=== PATIENT | female | born 1960 | race Two or more races ===

== ENCOUNTER 2024-08-06 14:48 | Inpatient (IN) | payer OTHER ==
[~2024-08-06] VITALS: Ht 152.4 cm; Wt 56.0 kg
--- NOTE | 2024-08-06 15:14 | ED.PDOC ---
GI ASSESSMENT HPI Comments 63 y.o female with PMHx of CHF, OH, hyperlipidemia, DM, and HTN, presents to the ED for a chief complaint of nausea associated with dizziness and diffused abdominal pain that started 2 days ago. Patient reports vomiting when symptoms first presented but since has only been dry heaving and "gagging" with the inability to eat or drink. Patient denies any fever, chills, syncopal episodes, chest pain or SOB. Patient had a CABG 1.5 months ago at [facility]. Patient is on Lasix but not taking at the moment due to awaiting prescription. Time Seen by MD: 15:03 Reviewed Notes: Nurses Notes, Medications, Allergies Allergies: Coded Allergies: NO KNOWN ALLERGIES (Unverified , 08/06/24) Information Source: Patient, Relative Mode of Arrival: Wheelchair Timing: Days (2) Quality: Aching Vomitus: None Stool: Normal Severity: Moderate Recent: None Recent Hx of: Other (CABG ) Pain Location: Diffuse Modifying Factors: Nothing Associated sign and symptoms: Nausea, Abdominal Pain Past Medical History PAST MEDICAL HISTORY: CHF, DM, High Lipids, HTN, OH Surgical History: CABG (2), (2), Hysterectomy, PTCA (2) Surgical History (Other): left hip OFFICE MANAGER RECEPTIONIST History: No Pertinent OFFICE MANAGER RECEPTIONIST History Family History Family History: Family hx of DM Social History Smoker: Non-Smoker Alcohol: Denies ETOH Use Drugs: Denies Drug Use Lives In: Home Constitutional: denies: chills, diaphoresis, fatigue, fever, malaise, sweats, weakness, others EENTM: denies: blurred vision, double vision, ear bleeding, ear discharge, ear drainage, ear pain, ear ringing, eye pain, eye redness, hearing loss, mouth pain, mouth swelling, nasal discharge, nose bleeding, nose congestion, nose pain, photophobia, tearing, throat pain, throat swelling, voice changes, others Respiratory: denies: cough, hemoptysis, orthopnea, SOB at rest, shortness of breath, SOB with excertion, stridor, wheezing, others Cardiovascular: denies: chest pain, dizzy spells, diaphoresis, Dyspnea on exertion, edema, irregular heart beat, left arm pain, lightheadedness, palpitations, PND, syncope, others Gastrointestinal: reports: abdominal pain, nausea; denies: abdomen distended, blood streaked bowels, constipated, diarrhea, dysphagia, difficulty swallowing, hematemesis, melena, poor appetite, poor fluid intake, rectal bleeding, rectal pain, vomiting, others Genitourinary: denies: abnormal vagina bleeding, burning, dyspareunia, dysuria, flank pain, frequency, hematuria, incontinence, pain, , vagina discharge, urgency, others Neurological: reports: dizziness; denies: fainting, headache, left sided numbness, left sided weakness, numbness, paresthesia, pre-existing deficit, right sided numbness, right sided weakness, seizure, speech problems, tingling, tremors, weakness, others Musculoskeletal: denies: back pain, gout, joint pain, joint swelling, muscle pain, muscle stiffness, neck pain, others Integumetry: denies: bruises, change in color, change in hair/nails, dryness, laceration, lesions, lumps, rash, wounds, others Allergic/Immunocompromised: denies: Difficulty Healing, Frequent Infections, Hives, Itching, others Hematologic/Lymphatic: denies: anemia, blood clots, easy bleeding, easy bruising, swollen glands, others Endocrine: denies: excessive hunger, excessive sweating, excessive thirst, excessive urination, flushing, intolerance to cold, intolerance to heat, unexplained weight gain, unexplained weight loss, others Psychiatric: denies: anxiety, bipolar disorder, depression, hopeless, panic disorder, schizophrenia, sleepless, suicidal, others All Other Systems: Reviewed and Negative Physical Exam General Appearance: Moderate Distress HEENT: Pale Conjuntivae (L), Pale Conjuntivae (R), Pharynx Normal, TMs Normal Neck: Full Range of Motion, Non-Tender, Normal, Normal Inspection Respiratory: Chest Non-Tender, Lungs Clear, No Accessory Muscle Use, No Respiratory Distress, Normal Breath Sounds Cardiovascular: No Edema, No JVD, No Murmur, No Gallop, Normal Peripheral Pulses, Regular Rate/Rhythm Breast Exam: Deferred Gastrointestinal: No Organomegaly, Non Tender, No Pulsatile Mass, Normal Bowel Sounds, Soft Genitalia: Deferred Pelvic: Deferred Rectal: Deferred Extremities: No calf tenderness, Normal capillary refill, No pedal edema Musculoskeletal : Apperance: Normal Neurologic: Alert, senior validation engineer II-XII nml as Tested, No Motor Deficits, Normal Affect, Normal Mood, No Sensory Deficits Cerebellar Function: Normal Reflexes: Normal Skin: Dry, Pallor, Warm Lymphatic: No Adenopathy Was a procedure done? Was a procedure done?: No GI differential Dx Differential Diagnosis: Esophagitis, Gastritis/PUD, Gastroenteritis, Electrolyte Imbalance, Bacterial, Viral X-Ray, Labs, Meds, VS Vital Signs Date Time Temp Pulse Resp B/P (MAP) Pulse Ox O2 Delivery O2 Flow Rate FiO2 08/06/24 15:21 96.7 84 17 119/41 (67) 100 96.7 Lab Test 08/06/24 15:45 Range/Units White Blood Count 9.4 4.4-10.8 10^3/uL Red Blood Count 3.69 L 4.0-5.20 10^6/uL Hemoglobin 11.1 L 12.2-16.2 g/dL Hematocrit 34.1 L 36.0-46.0 % Mean Corpuscular Volume 92.3 80.0-100.0 fL Mean Corpuscular Hemoglobin 30.1 28.0-32.0 pg Mean Corpuscular Hemoglobin Concent 32.6 32.0-36.0 g/dL Red Cell Distribution Width 16.6 H 11.8-14.3 % Platelet Count 369 140-450 10^3/uL Mean Platelet Volume 8.9 6.9-10.8 fL Neutrophils (%) (Auto) 89.9 H 37.0-80.0 % Lymphocytes (%) (Auto) 4.6 L 10.0-50.0 % Monocytes (%) (Auto) 5.3 0.0-12.0 % Eosinophils (%) (Auto) 0.0 0.0-7.0 % Basophils (%) (Auto) 0.2 0.0-2.0 % Neutrophils # (Auto) 8.5 1.6-8.6 10 ^3/uL Lymphocytes # (Auto) 0.4 0.4-5.4 10 ^3/uL Monocytes # (Auto) 0.5 0-1.3 10 ^3/uL Eosinophils # (Auto) 0 0-0.8 10 ^3/uL Basophils # (Auto) 0 0-0.2 10 ^3/uL Nucleated Red Blood Cells 0.0 % Sodium Level 137 136-145 mmol/L Potassium Level 3.5 3.5-5.1 mmol/L Chloride Level 96 L 98-107 mmol/L Carbon Dioxide Level 29 20-31 mmol/L Anion Gap 12 5-15 Blood Urea Nitrogen 33 H 9-23 mg/dL Creatinine 1.47 H 0.550-1.02 mg/dL Glomerular Filtration Rate Calc 40 >90 mL/min BUN/Creatinine Ratio 22.4 H 10.0-20.0 Serum Glucose 511 *H 74-106 mg/dL Calcium Level 10.2 8.7-10.4 mg/dL Total Bilirubin 0.6 0.2-1.0 mg/dL Aspartate Amino Transferase (AST) 11 L 13-40 U/L Alanine Aminotransferase (ALT) < 9 7-40 U/L Alkaline Phosphatase 123 H 46-116 U/L Troponin I High Sensitivity 37 *H </=34 ng/L Total Protein 6.3 5.7-8.2 g/dL Albumin 3.8 3.2-4.8 g/dL IV Hep-Lock was established The patient's CBC shows mild anemia with a hemoglobin of 11.1 and hematocrit of 34.1 The chemistry panel shows a BUN of 33 and a creatinine of 1.47 The glucose level is 511 The patient was being given normal saline as being given insulin 5 units IV push The patient's troponin level came back elevated at 37 We are repeating the troponin at this time At this time, the patient was being admitted to the hospitalist. The patient was diagnosis of controlled diabetes as well as elevated troponin Images Reviewed?: Images reviewed and evaluated by me Time of 1ST Reevaluation: 15:14 Reevaluation 1ST: Unchanged Patient Education/Counseling: Diagnosis, Treatment, Prognosis Family Education/Counseling: Diagnosis, Treatment, Prognosis Departure 1 Departure Time of Disposition: 18:16 Impression: Primary Impression: Uncontrolled diabetes mellitus Qualified Codes: E13.65 - Other specified diabetes mellitus with hyperglycemia Additional Impression: Elevated troponin Disposition: 09 ADMITTED INPATIENT Admit to: Tele Condition: Fair Critical Care Note Critical Care Time?: No Stability Stability form required: Yes Unstable for transfer: Telemetry monitoring (Telemetry monitoring required), ED Physician Assesment (Clinical assesment) I personally scribed for ABDULAZIZ GOMES MD ([email or web address]) on 08/06/24 at 15:14. Electronically submitted by Nini Westfall ([facility]). ABDULAZIZ GOMES MD Aug 06, 2024 15:14
--- NOTE | 2024-08-06 15:48 | DVH ---
CHEST RADIOGRAPH Indication: pain and weakness Technique: Frontal and lateral view of the chest was obtained Comparison: None FINDINGS: Lines and Tubes: Atrial appendage closure device noted. Sternotomy wires. Lungs: Clear Pleura: Mild blunting left costophrenic angle compatible with a subtle pleural effusion. No pneumothorax. Cardiomediastinal contours: Unremarkable Bones: Unremarkable IMPRESSION: 1. Small left pleural effusion.No infiltrates
[2024-08-06 15:58] LABS: Basophils # (auto) 0 10 ^3/uL (0-0.2); Basophils % (auto) 0.2 % (0.0-2.0); Eosinophils # (auto) 0 10 ^3/uL (0-0.8); Hematocrit 34.1 % (36.0-46.0); Hemoglobin 11.1 g/dL (12.2-16.2); Lymphocytes # (auto) 0.4 10 ^3/uL (0.4-5.4); Lymphocytes % (auto) 4.6 % (10.0-50.0); Mean Corpuscular Hemoglobin 30.1 pg (28.0-32.0); Mean Corpuscular Hgb Conc. 32.6 g/dL (32.0-36.0); Mean Corpuscular Volume 92.3 fL (80.0-100.0); Monocytes # (auto) 0.5 10 ^3/uL (0-1.3); Monocytes % (auto) 5.3 % (0.0-12.0); Neutrophils # (auto) 8.5 10 ^3/uL (1.6-8.6); Neutrophils % (auto) 89.9 % (37.0-80.0); Platelet Count (auto) 369 10^3/uL (140-450); Red Blood Cells 3.69 10^6/uL (4.0-5.20); Red Cell Distribution Width 16.6 % (11.8-14.3); White Blood Cell 9.4 10^3/uL (4.4-10.8)
[2024-08-06 16:17] LABS: Albumin 3.8 g/dL (3.2-4.8); Anion Gap 12 (5-15); BUN/Creatinine Ratio 22.4 (10.0-20.0); Bilirubin, Total 0.6 mg/dL (0.2-1.0); Calcium 10.2 mg/dL (8.7-10.4); Carbon Dioxide 29 mmol/L (20-31); Sodium 137 mmol/L (136-145); Total Protein 6.3 g/dL (5.7-8.2)
[2024-08-06 16:19] LABS: Alanine Aminotransferase < 9 U/L (7-40); Alkaline Phosphatase 123 U/L (46-116); Aspartate Aminotransferase 11 U/L (13-40); Blood Urea Nitrogen 33 mg/dL (9-23); Chloride 96 mmol/L (98-107); Potassium 3.5 mmol/L (3.5-5.1)
[2024-08-06 16:20] LABS: Glucose 511 mg/dL (74-106)
[2024-08-06] MEDS ORDERED: DEXTROSE (50%) 50ML SYRG IV PRN (21:30)
[2024-08-06] MEDS ORDERED: ONDANSETRON HCL 4 MG/2 ML VIAL IV PRN (21:30)
--- NOTE | 2024-08-06 21:40 | DVHHPRES ---
History of Present Illness Resident Creating Document: YINKA AVITIA RESIDENT Reason for Visit: VOMITING History of Present Illness Patient is a 63 year old female with a past medical history of uncontrolled DM, recent CABG () complicated by possible mediastinitis now s/p washout ( 06/2024) with MATT drains presented to the ED due to nausea and vomiting. Per patient, for the past few days she has been unable to tolerate any oral feeds due to persist nausea. She denies fever, cough, shortness of breath, abdominal pain or changes in bowel habits. Patient also has diabetes but not currently on medications as she is awaiting the prescription from her PCP. Of note, patient has decubital sacral ulcer. Initial lab work reveal hyperglycemia with A1C 9.7 otherwise unremarkable. PMHX: Diabetes mellitus, hypertension, hyperlipidemia, Past surgical history: CABG Social history: Patient lives with a sister but currently living with a winifred ghter here in her [place] we will Family history: noncontributory Review of Systems Constitutional: No: Fever, Chills, Sweats, Weakness, Malaise, Other Eyes: No: Pain, Vision change, Conjunctivae inflammation, Eyelid inflammation, Other, Redness ENT: No: Ear pain, Ear discharge, Nose pain, Nose discharge, Nose congestion, Mouth pain, Mouth swelling, Throat pain, Throat swelling, Other Respiratory: No: Cough, Dry, Shortness of breath, SOB with excertion, Wheezing, Hemoptysis, Pleuritic Pain, Sputum, Wheezing, Other Cardiovascular: No: Chest Pain, Palpitations, Orthopnea, Paroxysmal Noc. Dyspnea, Edema, Lt Headedness, Other Gastrointestinal: Nausea, Vomiting; No: Abdominal Pain, Diarrhea, Constipation, Melena, Hematochezia, Other Genitourinary: No Dysuria, No Frequency, No Incontinence, No Hematuria, No Retention, No Other Musculoskeletal: No: other, neck pain, shoulder pain, arm pain, back pain, hand pain, leg pain, foot pain Skin: No: Rash, Lesions, Jaundice, Bruising, Other Neurological: No: Weakness, Numbness, Incoordination, Change in speech, Confusion, Seizures, Other Allergies: Coded Allergies: NO KNOWN ALLERGIES (Unverified , 08/06/24) Exam Vital Signs Vital Signs Date Time Temp Pulse Resp B/P (MAP) Pulse Ox O2 Delivery O2 Flow Rate FiO2 08/06/24 15:21 96.7 84 17 119/41 (67) 100 96.7 Exam General Appearance: Alert, Oriented X3, Cooperative, No acute distress; fatigued and drained HEENT: Atraumatic, PERRLA, EOMI, Mucous membrane moist/pink Respiratory: Clear to auscultation, Normal air movement Cardiovascular: sutures present in the mediastinal chest wall, MATT drains draing serosangenous fluid, Regular rate, Normal S1, Normal S2, No murmurs, no chest wall tenderness Abdominal: NO distention, no tenderness, bowel sounds present, no scars noted Extremities: bilateral pitting edema Skin: No rashes, No breakdown, No significant lesion Neuro: Normal gait, Normal speech, Strength at 5/5 X4 ext, Normal tone, Sensation intact, Cranial nerves 3-12 NL, Reflexes 2+ Psych/Mental Status: Mental status NL, Mood NL Labs/Xrays Labs Test 08/06/24 20:49 08/06/24 15:45 Range/Units White Blood Count 9.4 4.4-10.8 10^3/uL Red Blood Count 3.69 L 4.0-5.20 10^6/uL Hemoglobin 11.1 L 12.2-16.2 g/dL Hematocrit 34.1 L 36.0-46.0 % Mean Corpuscular Volume 92.3 80.0-100.0 fL Mean Corpuscular Hemoglobin 30.1 28.0-32.0 pg Mean Corpuscular Hemoglobin Concent 32.6 32.0-36.0 g/dL Red Cell Distribution Width 16.6 H 11.8-14.3 % Platelet Count 369 140-450 10^3/uL Mean Platelet Volume 8.9 6.9-10.8 fL Neutrophils (%) (Auto) 89.9 H 37.0-80.0 % Lymphocytes (%) (Auto) 4.6 L 10.0-50.0 % Monocytes (%) (Auto) 5.3 0.0-12.0 % Eosinophils (%) (Auto) 0.0 0.0-7.0 % Basophils (%) (Auto) 0.2 0.0-2.0 % Neutrophils # (Auto) 8.5 1.6-8.6 10 ^3/uL Lymphocytes # (Auto) 0.4 0.4-5.4 10 ^3/uL Monocytes # (Auto) 0.5 0-1.3 10 ^3/uL Eosinophils # (Auto) 0 0-0.8 10 ^3/uL Basophils # (Auto) 0 0-0.2 10 ^3/uL Nucleated Red Blood Cells 0.0 % Sodium Level 137 136-145 mmol/L Potassium Level 3.5 3.5-5.1 mmol/L Chloride Level 96 L 98-107 mmol/L Carbon Dioxide Level 29 20-31 mmol/L Anion Gap 12 5-15 Blood Urea Nitrogen 33 H 9-23 mg/dL Creatinine 1.47 H 0.550-1.02 mg/dL Glomerular Filtration Rate Calc 40 >90 mL/min BUN/Creatinine Ratio 22.4 H 10.0-20.0 Serum Glucose 511 *H 74-106 mg/dL Calcium Level 10.2 8.7-10.4 mg/dL Total Bilirubin 0.6 0.2-1.0 mg/dL Aspartate Amino Transferase (AST) 11 L 13-40 U/L Alanine Aminotransferase (ALT) < 9 7-40 U/L Alkaline Phosphatase 123 H 46-116 U/L Total Protein 6.3 5.7-8.2 g/dL Albumin 3.8 3.2-4.8 g/dL Assessment/Plan Assessment/Plan Septic shock probably UTI vs mediastinitis --> Vancomycin -> Cefepime --> Epinephrine --> ICU status Possible gastroparesis --> Poorly controlled DM --> A1C 9.7 --> Serum glucose: 511 Possible Mediastinitis, Recent CABG ( 05/2024) --> Order CT chest contrast --> start Vancomycin --> start Cefepime --> Cardiology consult for management UTI --> obtain Urine culture --> obtain blood culture --> start Vancomycin --> Start Cefepime Uncontrolled Diabetes Mellitus --> A1C 9.7 --> Serum glucose: 511 --> Serum osmolarity: 323 --> Start Aggressive sliding scale --> Add Insulin drip, give K --> Monitor electrolytes [place] and vomiting --> Zofran Bilateral pitting edema --> Echo to rule out CHF --> likely due malnutrition Sacral ulcer present on admission --> wound consult --> Tylenol Moderate malnutrition --> Diet consult PAVAN --> unsure of baseline creatinine History of stroke History of HTN Goal of care discussed for more than 60 minutes; full code Case and plan discussed with Dr. Tanner Plan discussed with: Patient My Orders Orders - YINKA AVITIA Procedure Category Date Status Time Admit ADMIT 08/06/24 Transmitted 21:28 Code Status CODE 08/06/24 Transmitted 21:28 Vital Signs CAITLIN 08/06/24 In Process 21:28 Review Orders With CAITLIN 08/06/24 In Process Adm. 21:28 Npo (Nothing By DIET 08/07/24 Transmitted Mouth) Diet Breakfast Notify Md Of Changes CAITLIN 08/06/24 In Process From Base 21:28 Advance Directive CAITLIN 08/06/24 In Process 21:28 Patient Condition ORDERS 08/06/24 Transmitted 21:28 Allergies CAITLIN 08/06/24 In Process 21:28 Ondansetron Hcl PHA 08/06/24 Logged (Zofran) 21:30 Notify Md Of Changes CAITLIN 08/06/24 In Process From Base 21:28 B-Type Natriuretic LAB 08/06/24 Transmitted Peptide 21:28 Echo 2d Mode Cardiac US 08/06/24 Logged DOP 21:28 Osmolality, Serum LAB 08/06/24 Transmitted 21:28 Drug Screen LAB 08/06/24 Transmitted 21:28 PTPTT LAB 08/07/24 Verified 04:00 Thyroid Stimulating LAB 08/06/24 Transmitted Hormone 21:28 Basic Metabolic Panel LAB 08/07/24 Verified 04:00 Complete Blood Count LAB 08/07/24 Verified 04:00 Urinalysis LAB 08/06/24 Transmitted 21:28 Hemoglobin A1c LAB 08/06/24 Transmitted 21:28 Glucose Blood PHA 08/07/24 Transmitted (Accu-Chek Comfort 00:00 Agressive Insulin Ss PHA 08/07/24 Transmitted 00:00 Dextrose 50% Syringe PHA 08/06/24 Transmitted 21:30 Electrocardigram EKG 08/06/24 Logged 21:28 Date of Service: Aug 06, 2024 Billing Provider: LOUIE TANNER MD Common Visit Codes: [id number] INP/OBS CARE (HIGH) YINKA AVITIA Aug 06, 2024 21:40 LOUIE TANNER MD Aug 07, 2024 17:42
[2024-08-06] MEDS: ONDANSETRON HCL 4 MG/2 ML VIAL IV ONE (23:33)
[2024-08-06] MEDS: InsuLIN REG 1unit/0.01ml Soln (100units/ml) IV ONE (23:34)
[2024-08-06] MEDS: ACCU-CHEK COMFORT CURVE STRIP VI SCH (23:34)
[2024-08-06 23:35] VITALS: PULSE 91; RESP 18; O2SAT 96
[2024-08-06] MEDS: InsuLIN REG 1unit/0.01ml Soln (100units/ml) SC SCH (23:45)
[2024-08-07] VITALS (10 sets, daily range): BP systolic 90–153; BP diastolic 41–75; PULSE 73–96; RESP 12–16; TEMP 97.9; O2SAT 95–98
[2024-08-07] MEDS: SODIUM CHLORIDE 0.9% 500 ML IV ONE (00:09)
[2024-08-07 01:03] LABS: Urine Bacteria MANY /hpf (None Seen); Urine Blood TRACE /uL (Negative); Urine Budding Yeast FEW /hpf (None Seen); Urine Clarity Turbid (Clear); Urine Color Colorless (Yellow); Urine Mucus FEW (None Seen); Urine Protein, UAD 1+ (Negative); Urine Squamous Epithelial Cell MOD /hpf (<5); Urine Urobilinogen Normal (Negative); Urine WBC 193 /HPF (0-5); Urine WBC Clumps PRESENT /hpf (None Seen); Urine pH 5.5 (5.0-9.0)
[2024-08-07 01:41] LABS: Amphetamine Screen, Urine Neg (NEGATIVE); Barbiturate Scree,Urine Neg (NEGATIVE); Benzodiazephine Screen, Urine Neg (NEGATIVE); Cannabinoid Screen, Urine Neg (NEGATIVE); Cocaine Screen, Urine Neg (NEGATIVE); Opiate Scree,Urine Neg (NEGATIVE); Phencyclidine Screen, Urine Neg (NEGATIVE)
[2024-08-07] MEDS: FUROSEMIDE 20 MG/2 ML VIAL IV ONE (02:19)
[2024-08-07] MEDS: SODIUM CHLORIDE 0.9% 250 ML IV ONE (03:00)
[2024-08-07] MEDS: IOHEXOL 300 MG/ML 100ML BOTTLE IJ ONE (03:02)
[2024-08-07] MEDS: ACETAMINOPHEN 325 MG TAB PO ONE (03:21)
[2024-08-07] MEDS ORDERED: ONDANSETRON HCL 4 MG/2 ML VIAL IV PRN (03:30)
[2024-08-07] MEDS ORDERED: VANCOMYCIN PER PHARMACY 0 MG IV SCH (03:30)
[2024-08-07] MEDS ORDERED: DEXTROSE (50%) 50ML SYRG IV PRN ×2 (04:00→05:45)
[2024-08-07] MEDS ORDERED: POTASSIUM CHLORIDE 40 MEQ, LIDOCAINE 1% (LOCAL ANESTH.) 4 ML in SODIUM CHL 0.9% 250 ML IV ONE (04:00)
[2024-08-07] MEDS: INSULIN DRIP 100 UNIT/100ML 100 ML IV SCH (04:00)
[2024-08-07] MEDS: SODIUM CHLORIDE 0.9% 1,000 ML IV SCH (04:07)
[2024-08-07] MEDS: NOREPINEPHRINE 8 MG/250ML KIT 250 ML IV SCH ×3 (04:08→23:55)
[2024-08-07] MEDS: VANCOMYCIN 1.25GM/250ML 250 ML IV ONE (04:25)
[2024-08-07] MEDS: ACCU-CHEK COMFORT CURVE STRIP VI SCH ×2 (04:30→06:00)
[2024-08-07 04:43] LABS: Basophils # (auto) 0 10 ^3/uL (0-0.2); Basophils % (auto) 0.3 % (0.0-2.0); Eosinophils # (auto) 0 10 ^3/uL (0-0.8); Hematocrit 29.8 % (36.0-46.0); Hemoglobin 10.1 g/dL (12.2-16.2); Lymphocytes # (auto) 0.6 10 ^3/uL (0.4-5.4); Lymphocytes % (auto) 6.1 % (10.0-50.0); Mean Corpuscular Hemoglobin 30.8 pg (28.0-32.0); Mean Corpuscular Volume 90.6 fL (80.0-100.0); Monocytes # (auto) 0.9 10 ^3/uL (0-1.3); Neutrophils # (auto) 8.1 10 ^3/uL (1.6-8.6); Neutrophils % (auto) 84.6 % (37.0-80.0); Platelet Count (auto) 319 10^3/uL (140-450); Red Blood Cells 3.29 10^6/uL (4.0-5.20); White Blood Cell 9.6 10^3/uL (4.4-10.8)
[2024-08-07 05:02] LABS: Albumin 3.3 g/dL (3.2-4.8); Alkaline Phosphatase 93 U/L (46-116); Anion Gap 10 (5-15); Aspartate Aminotransferase 14 U/L (13-40); BUN/Creatinine Ratio 21.5 (10.0-20.0); Bilirubin, Total 0.4 mg/dL (0.2-1.0); Calcium 9.9 mg/dL (8.7-10.4); Carbon Dioxide 28 mmol/L (20-31); Chloride 101 mmol/L (98-107); Sodium 139 mmol/L (136-145); Total Protein 5.8 g/dL (5.7-8.2)
[2024-08-07 05:07] LABS: Alanine Aminotransferase < 9 U/L (7-40); Blood Urea Nitrogen 31 mg/dL (9-23); Glucose 183 mg/dL (74-106); Potassium 2.7 mmol/L (3.5-5.1)
[2024-08-07 05:12] LABS: Lactic Acid w/Reflex 3.6 mmol/L (0.4-2.0)
[2024-08-07 05:19] LABS: INR 1.2 (0.9-1.15); Partial Thromboplastin Time 24.2 SEC (24.5-34.5); Prothrombin Time 12.5 sec (9.3-11.8)
[2024-08-07] MEDS: POTASSIUM CHL 20MEQ/50ML 50 ML IV SCH ×2 (05:30→07:00)
--- NOTE | 2024-08-07 05:45 | DVH ---
Procedure: CT CHEST WITH CONTRAST Reason for study/Clinical History: Rule out mediastinitis Comparison Study: None available at time of dictation. Exam Date: 08/07/2024 04:01 AM Radiation Dose Information: CT Dose: CTDI volume is 7.32 mGy. Dose-length product is 499.07 mGy*cm Contrast: Type of contrast: Omnipaque 350 Contrast inject: 100 mL Contrast wasted:0 TECHNIQUE: CT of the chest was performed with intravenous contrast. Coronal and sagittal reformatted images are submitted. 3D/MIP images are provided. FINDINGS: Lower Neck: Visualized portions of the thyroid gland are unremarkable. Aorta and Vasculature: Normal caliber of thoracic aorta. No evidence of thoracic aortic aneurysm or d issection. There are filling defects in right lower lobe pulmonary artery segmental branches compatib le with pulmonary emboli (series 2, image 76/117). Normal caliber main pulmonary artery. Lymph Nodes: No enlarged intrathoracic lymph nodes. Mediastinum: Heart size is normal. RV to LV ratio measures 0.8. There is no pericardial effusion. The esophagus is unremarkable. There soft tissue density in the anterior mediastinum. No fluid collectio n. Lungs: Right lower lobe opacities. Left lower lobe opacities. No suspicious pulmonary nodule. Central airways: Patent. Pleura: Left pleural effusion. No right pleural effusion. No pneumothorax Musculoskeletal: Status post median sternotomy. There is soft tissue density anterior to the median s ternotomy. There is a surgical drain which terminates in the subcutaneous soft tissues of the upper mediastinum. No fluid collection. Upper abdomen: Limited portions of the upper abdomen are unremarkable. IMPRESSION: 1. Right lower lobe segmental pulmonary emboli. No CT evidence of right heart strain. 2. Postsurgical changes from median sternotomy. There is soft tissue density in the anterior mediast inum and within the anterior soft tissues of the chest adjacent to a surgical drain which may be post surgical in nature. Phlegmon/inflammatory changes are not excluded. No fluid collection. 3. Left pleural effusion. All CT scans at this medical facility are performed using dose modulation techniques as appropriate t o a performed exam including the following: Automated exposure control was utilized; adjustment of th e MA and/or KV according to patient size; and use of iterative reconstruction technique.
[2024-08-07] MEDS: InsuLIN REG 1unit/0.01ml Soln (100units/ml) SC SCH (06:00)
[2024-08-07] MEDS: HEPARIN SODIUM (PORCINE) 5000 UNITS/ML 1ML VIAL IV ONE ×2 (06:32→10:16)
--- NOTE | 2024-08-07 08:51 | DVHNC2 ---
Central Line Recorder of insertion practice: Belt Cutter Indication: Hypotension Room prepared for procedure: Yes Belt Cutter performed hand hygien: Yes Maximal sterile barrier precau: Mask/Eye shield, Sterile gown, Cap, Sterlie gloves, Large sterlie drape Skin Preparation: Chlorhexidine gluconate, Providine iodine Skin preparation completely dr: Yes Insertion site: Right Central line catheter type: [id number] dialysis Number of lumens: 3 Post Assessment: Chest X-Ray Informed consent obtained: Yes Risks/benefits/alt described: Yes Notes Procedure supervised by Dr. Mejia Chest x-ray pending Date of Service: Aug 07, 2024 Billing Provider: LOUIE DUMAS MD Common Visit Codes: PROCEDURE ONLY Procedure Codes: [id number] NON-TUNNEL CV CATH YINKA AVITIA RESIDENT Aug 07, 2024 08:51 LOUIE DUMAS MD Aug 07, 2024 17:44
--- NOTE | 2024-08-07 09:40 | DVH ---
EXAM: XY CHEST XRAY 1 VIEW Indication: CENTRAL LINE PLACEMENT VERIFICATION Technique: Single frontal view of the chest was obtained Comparison: None FINDINGS: Lines and Tubes: Right central venous catheter tip projects over the right atrium. Lungs: Left basilar opacity. Pleura: Small left pleural effusion. No pneumothorax. Cardiomediastinal contours: Mild cardiomegaly. Bones: No acute osseous abnormality. IMPRESSION: Small left pleural effusion.
[2024-08-07] MEDS: CEFEPIME 1GM/ 50ML 50 ML IV SCH (10:00)
[2024-08-07] MEDS: FUROSEMIDE 20 MG/2 ML VIAL IV SCH (10:00)
[2024-08-07] MEDS: HEPARIN DRIP/D5W 100UNITS/ML 250 ML IV SCH ×2 (10:00→18:30)
--- NOTE | 2024-08-07 10:12 | DVHPNRES ---
Progress Note Date Seen: Aug 07, 2024 Resident Creating Document: REGINA MCKEON RESIDENT Medical Necessity Reason Pt with a Central, PICC or Fol: Yes The following are medically ne: Central Line Subjective Review of Systems Patient is 63 years old female with past medical history of diabetes mellitus type 2, hypertension, hyperlipidemia,, recent CABG () complicated by possible mediastinitis now s/p washout ( 06/2024) with MATT drains , at [facility] with a complaint of nausea and vomiting. As per patient she has been having intractable nausea and vomiting started last and was unable to keep anything down. Patient also reported feeling tired and fatigued which brought her to the hospital. Patient denied any chest pain, shortness of breath, palpitation, acute abdominal pain or dysuria or fever. Lab workup revealed WBC 9.4, hemoglobin 11.1, platelet 369, sodium 137, potassium 3.5 then went down to 2.7, supplemented, anion gap 12, elevated BUN 33, elevated serum creatinine 1.47, serum glucose 511, HbA1c 9.7, lactic acid 3.6, serum 10.2, serum bilirubin 0.6, AST 11, ALT 9, trop I 37> 36> 34, BNP 693, TSH 2.51. UDS negative. Urinalysis positive for UTI with leukocyte esterase 3+, WBC 193, RBC 10, many, glucose 4+, ketones 1+. 1.2. CXR revealed small left pleural effusion, no infiltrate. CT chest Right lower lobe segmental pulmonary emboli. No CT evidence of right heart strain. 2. Postsurgical changes from median sternotomy. There is soft tissue density in the anterior mediastinum and within the anterior soft tissues of the chest adjacent to a surgical drain which may be postsurgical in nature. Phlegmon/inflammatory changes are not excluded. No fluid collection. 3. Left pleural effusion. Admission patient has also developed hypotension with a BP 68/41, tachycardic of the 108, tachypneicn respiration 2. Was started on Levophed along with antibiotic cefepime for septic shock. Echo 2D revealed- Normal LV size with mildly reduced systolic function. LVEF 45-50%. Severe hypokinesis of anteroseptal and anterior chilel, as well as apex. Grade 2 diastolic dysfunction. Mild LA enlargement. No significant valvular disease. Mild aortic sclerosis. Trace TR and PI. RVSP estimated at 20 mmHg + CVP. Doppler study of the lower extremity was negative for DVT. PMHX: Diabetes mellitus, hypertension, hyperlipidemia, Past surgical history: CABG Social history: Patient lives with a sister but currently living with a daughter in law here in [place] Family history: noncontributory Patient was seen today for clinical evaluation. Labs and chart reviewed. WBC trending with a normal limit, mild anemia with a hemoglobin 10.1, hypokalemia with potassium up to 2.7, supplemented. Following treatment patient's blood sugar dropped down to 71, patient was awake and alert, oral juice was given. Lactic acid trending down from 3.6> 2.1 Serum creatinine trending> 1.47 1.44 Patient's blood pressure was trending back to with a normal limit, Levophed was discontinued. With the patient's antibiotic from cefepime to meropenem. Patient on vancomycin as per pharmacy protocol. Patient was started on heparin drip for acute pulmonary embolism Patient on heparin drip for acute pulmonary embolism as per pharmacy protocol Echo 2D revealed- Normal LV size with mildly reduced systolic function. LVEF 45- 50%. Severe hypokinesis of anteroseptal and anterior chilel, as well as apex. Grade 2 diastolic dysfunction. Mild LA enlargement. No significant valvular disease. Mild aortic sclerosis. Trace TR and PI. RVSP estimated at 20 mmHg + CVP Pending blood culture, urine culture Patient was seen by Cardiology, recommendation reviewed and appreciated Provider called and talk to daughter in-law Negra Jones [phone], discussed patient's current medical condition, plan of care and answered her question. Objective vital signs Vital Sign Date Time Temp Pulse Resp B/P (MAP) Pulse Ox O2 Delivery O2 Flow Rate FiO2 08/07/24 09:00 79 21 126/54 (78) 97 08/07/24 07:30 Room Air* 0 21 08/07/24 07:30 98.4 98.4 Total Intake and Output 08/06/24 08/06/24 08/07/24 15:00 23:00 07:00 Intake Total 351 ml Balance 351 ml medications Current Medications Medications Dose Ordered Sig/Lynn Route Start Time Stop Time Status Last Admin Dose Admin Furosemide 20 mg DAILY IV 08/07/24 10:00 Acetaminophen 650 mg Q6HP PRN PO 08/07/24 03:30 Ondansetron HCl 4 mg Q6HPRN PRN IV 08/07/24 03:30 Vancomycin HCl 0 ml @ 0 mls/hr UD IV 08/07/24 03:30 Cefepime HCl 50 ml @ 12.5 mls/hr Q12HR IV 08/07/24 10:00 Sodium Chloride 1,000 ml @ 50 mls/hr Q20H IV 08/07/24 03:45 08/07/24 04:07 50 MLS/HR Norepinephrine Bitartrate 250 ml @ 0.938 mls/ hr Q24H IV 08/07/24 05:45 Diagnostic Test (Pha) 1 strip Q6HR 08/07/24 06:00 08/07/24 06:00 1 STRIP Insulin Human Regular Q6HR SC 08/07/24 06:00 Dextrose 50 ml UD PRN IV 08/07/24 05:45 Heparin Sodium/ Dextrose 250 ml @ 10 mls/hr Q24H IV 08/07/24 07:15 Vancomycin HCl 250 ml @ 250 mls/hr DAILY@0400 IV 08/08/24 04:00 Examination General examination- , alert, tired looking HEENT- PEERLA, no acute nasal discharge Cardiovascular- S1-S2 audible, rate and rhythm regular, no murmur Respiratory- CTAB, no wheeze or rhonchi Gastrointestinal-nontender, bowel sound+. Nondistended Musculoskeletal-no acute joint swelling or tenderness or redness# Lower extremity- leg edema++, sacral wound stage IV Neurological- cranial nerves intact, no acute dysarthria or dysphagia Psychiatry- denies depression or SI or HI Skin- no acute rash or purpura laboratory and microbiology Laboratory Tests 08/07/24 04:32 Test 08/07/24 04:32 Range/Units Serum Glucose 183 H 74-106 mg/dL Problem List/Assessment/Plan Problem List/Assessment/Plan Assessment plan Neurological Suspected metabolic encephalopathy due to septic Shock -monitor vitals -avoid dehydration -monitor CBC, CMP, mental status Cardiovascular Acute heart failure -HFrEF Septic shock-status post Levophed -bilateral leg edema likely due to acute heart failure -Coronary artery disease status post two-vessel CABG with post-op mediastinitis (05/2024), on MATT drain x2 NSTEMI type 2 secondary to above CAD Status post CABG History of hypertension Hyperlipidemia -Echo 2D revealed- Normal LV size with mildly reduced systolic function. LVEF 45-50%. Severe hypokinesis of anteroseptal and anterior chilel, as well as apex -monitor vitals -continue wound care as per wound care team Respiratory -Acute hypoxic respiratory failure due to acute systolic heart failure -Acute pulmonary embolism -Acute pulmonary edema -IV heparin as per protocol Gastrointestinal -intractable nausea and vomiting likely due to septic Shock Slow bowel transit Genitourinary/renal UTI with sepsis-status post Levophed PAVAN likely due to VMN -Likely CKD stage IIIb Hypokalemia-replenishe - -pending blood culture, urine culture -continue antibiotic ceftriaxone and vancomycin Infectious -Septic shock likely due to UTI -pending blood culture, urine culture -continue meropenem and vancomycin as prescribed -pending blood culture and uterine culture Hematology Anemia of chronic disease -monitor CBC Endocrine/metabolism -Diabetes mellitus type 2, controlled -elevated Lactic acidosis likely due to sepsis -Uncontrolled diabetes mellitus -Hypokalemia replenished -continue insulin sliding scale, monitor blood sugar level as recommended Skin/integumentary -stage IV sacral ulcer-continue care as per direction of the Wound Care team Lines-central line right internal jugular vein Goals of care/advance care planning Code status ; discussed with the patient >15 minutes PUD prophylaxis: Heparin DVT prophylaxis: Pantoprazole Plan discussed with Dr. Beck , nursing staff, daughter [id number], Patient Total time spent on patient evaluation, chart review, assessment and plan, total Critical time spent 83 minutes Plan discussed with: Patient, Other (RN, daughter in-law- Negra) Date of Service: Aug 07, 2024 Billing Provider: VENTURA BECK MD Common Visit Codes: [id number] CARE 30-74 MIN, [id number] CARE-EACH +30MIN REGINA MCKEON RESIDENT Aug 07, 2024 10:12 VENTURA BECK MD Aug 08, 2024 14:05
[2024-08-07] MEDS: MEROPENEM 1GM IVPB 50 ML IV ONE (11:26)
--- NOTE | 2024-08-07 12:40 | DVH ---
Bilateral lower extremity venous duplex Clinical History: EDEMA/PE Comparison: None Technique: Duplex Doppler evaluation of the deep venous systems of both lower extremities from the common femora l veins to the popliteal veins including color Doppler and spectral/pulsed waveform analysis was perf ormed. Findings: RIGHT SIDE: The common femoral vein demonstrates appropriate compressibility and waveform variability. There is compressibility/patency of the great saphenous vein at the proximal thigh. The femoral vein demonstrates appropriate compressibility and waveform variability. The deep femoral vein demonstrates appropriate compressibility and waveform variability. The popliteal vein demonstrates appropriate compressibility and waveform variability. There is normal compressibility at the tibioperoneal trunk. LEFT SIDE: The common femoral vein demonstrates appropriate compressibility and waveform variability. There is compressibility/patency of the great saphenous vein at the proximal thigh. The femoral vein demonstrates appropriate compressibility and waveform variability. The deep femoral vein demonstrates appropriate compressibility and waveform variability. The popliteal vein demonstrates appropriate compressibility and waveform variability. There is normal compressibility at the tibioperoneal trunk. Impression: No right or left femoropopliteal venous thrombosis.
--- NOTE | 2024-08-07 13:27 | DVHINCON2 ---
CAROLYN LUNA [facility] 08/07/24 1327: Date Seen: Aug 07, 2024 Referring Physician MD Ramakrishna Reason for Consultation Recent CABG at [facility] History of Present Illness This is a 63-year-old female who presented to the emergency room with a chief complaint of nausea and vomiting. The patient who resides in [place] is temporarily staying at her son's place during recovery from a recent two-vessel CABG completed at [facility] on mid-05/2024. States she developed a sternal wound infection and mediastinitis post-procedure with possible collagen sponge treatment requiring admission to the ICU at [facility] on 06/2024. Denies any active chest pain, palpitations, diaphoresis, shortness of breath, dizziness, or syncopal events. Complains of persistent nausea, vomiting, and poor appetite. She underwent a 12-lead electrocardiogram revealing a sinus rhythm with a QTc at 560 ms. Troponin levels peaked at 37 ng/L. Significant medical history includes severe coronary artery disease status post PTCA x 2DES status post two-vessel CABG on 05/2024, unspecified congestive heart failure, hypertension, dyslipidemia, and diabetes mellitus type 2. Past Medical History Past medical history reviewed. No other significant than mentioned above. Past Surgical History Two-vessel CABG, 05/2024 PTCA including two KEON Hysterectomy Family History Family history reviewed. Social History Denies the use of illicit drugs, alcohol, or tobacco use. Allergies: Coded Allergies: NO KNOWN ALLERGIES (Unverified , 08/06/24) Home Meds Unable to retrieve home medications. Current Medications Current Medications Medications (Trade) Dose Ordered Sig/Lynn Route PRN Reason Start Time Stop Time Status Last Admin Ondansetron HCl (Zofran) 4 mg Q4HP PRN IV NAUSEA / VOMITING 08/06/24 21:30 08/07/24 09:00 DC Diagnostic Test (Pha) (Accu-Chek Comfort Curve T) 1 strip Q6HR 08/07/24 00:00 08/07/24 03:53 DC 08/06/24 23:34 Insulin Human Regular (InsuLIN R) Q6HR SC 08/07/24 00:00 08/07/24 03:53 DC 08/06/24 23:45 Dextrose 50 ml UD PRN IV Blood Sugar LESS THAN 60 08/06/24 21:30 08/07/24 03:53 DC Furosemide (Lasix Injection) 20 mg DAILY IV 08/07/24 10:00 08/07/24 10:54 Acetaminophen (Tylenol Tablet) 650 mg Q6HP PRN PO MILD PAIN (1-3 PAIN SCALE) 08/07/24 03:30 Ondansetron HCl (Zofran) 4 mg Q6HPRN PRN IV NAUSEA / VOMITING 08/07/24 03:30 Vancomycin HCl 0 ml @ 0 mls/hr UD IV 08/07/24 03:30 Cefepime HCl 50 ml @ 12.5 mls/hr Q12HR IV 08/07/24 10:00 08/07/24 10:51 DC Sodium Chloride 1,000 ml @ 50 mls/hr Q20H IV 08/07/24 03:45 08/07/24 11:02 DC 08/07/24 04:07 Norepinephrine Bitartrate 250 ml @ 3.75 mls/hr Q24H IV 08/07/24 03:45 08/07/24 05:49 DC 08/07/24 04:08 Insulin Human (Reg)/Sodium Chloride 100 ml @ 0.5 mls/hr Q24H IV 08/07/24 04:00 08/07/24 05:49 DC Diagnostic Test (Pha) (Accu-Chek Comfort Curve T) 1 strip Q90MIN 08/07/24 04:30 08/07/24 05:49 DC 08/07/24 04:30 Dextrose 50 ml PRN PRN IV BG LESS Than 70 AND CALL MD 08/07/24 04:00 08/07/24 05:49 DC Potassium Chloride 50 ml @ 25 mls/hr Q2H IV 08/07/24 04:00 08/07/24 07:59 DC 08/07/24 10:16 Norepinephrine Bitartrate 250 ml @ 0.938 mls/ hr Q24H IV 08/07/24 05:45 Potassium Chloride 50 ml @ 25 mls/hr Q2H IV 08/07/24 06:00 08/07/24 09:59 DC 08/07/24 07:00 Diagnostic Test (Pha) (Accu-Chek Comfort Curve T) 1 strip Q6HR 08/07/24 06:00 08/07/24 06:00 Insulin Human Regular (InsuLIN R) Q6HR SC 08/07/24 06:00 Dextrose 50 ml UD PRN IV Blood Sugar LESS THAN 60 08/07/24 05:45 Heparin Sodium/ Dextrose 250 ml @ 10 mls/hr Q24H IV 08/07/24 07:15 08/07/24 10:00 Vancomycin HCl 250 ml @ 250 mls/hr DAILY@0400 IV 08/08/24 04:00 Meropenem 50 ml @ 17 mls/hr Q12HR IV 08/07/24 14:00 Review of Systems Constitutional: No symptom reported Ears, Nose, & Throat: No symptom reported Eyes: No symptom reported Neurological: No symptoms reported Pulmonary/Respiratory: No symptom reported Cardiovascular: No symptom reported Gastrointestinal: N/V/poor appetite Genitourinary: No symptom reported Musculoskeletal: No symptom reported Skin: No symptom reported Psychiatric: No symptom reported Endocrine: No symptom reported Hemotologic/Lymphatic: No symptom reported Vital Signs Vital Signs Date Time Temp Pulse Resp B/P (MAP) Pulse Ox O2 Delivery O2 Flow Rate FiO2 08/07/24 10:54 139/51 08/07/24 09:00 79 21 97 08/07/24 07:30 Room Air* 0 21 08/07/24 07:30 98.4 98.4 Physical Exam General Appearance: Cooperative. Appears lethargic. In no acute distress Head Exam: Normal inspection Neck Exam: Normal inspection. Non-tender. Normal alignment Pulmonary/Respiratory: Clear bilateral breath sounds Cardiovascular/Chest: Regular rate and rhythm. S1, S2. Sinus rhythm with prolonged QTc at 560 ms. Peripheral Pulses: 2+ Radial (R). 2+ Radial (L). 2+ Pedal (R). 2+ Pedal (L) Abdominal Exam: Normal bowel sounds. Soft. Nontender. No hepatospenomegaly. No masses Ankle Exam: Positive ankle pitting edema, 2+ Lower extremities: Positive lower extremity pitting edema, 2+ Neuro/Mental Status: A&O x4. Coherent Thoughts/Psych: Normal thought pattern. Appropriate mood and affect. Good judgement and insight Appearance: In no acute distress Skin Exam: Sacral wounds, see wound care documentation. Mid-sternal incision is intact Labs/Diagnostic Data Labs Test 08/07/24 07:57 08/07/24 06:35 08/07/24 04:32 08/07/24 00:30 Range/Units POC Glucose 71 70-106 mg/dl Lactic Acid Level 2.1 *H 0.4-2.0 mmol/L White Blood Count 9.6 4.4-10.8 10^3/uL Red Blood Count 3.29 L 4.0-5.20 10^6/uL Hemoglobin 10.1 L 12.2-16.2 g/dL Hematocrit 29.8 #L 36.0-46.0 % Mean Corpuscular Volume 90.6 80.0-100.0 fL Mean Corpuscular Hemoglobin 30.8 28.0-32.0 pg Mean Corpuscular Hemoglobin Concent 34.0 32.0-36.0 g/dL Red Cell Distribution Width 16.0 H 11.8-14.3 % Platelet Count 319 140-450 10^3/uL Mean Platelet Volume 8.7 6.9-10.8 fL Neutrophils (%) (Auto) 84.6 H 37.0-80.0 % Lymphocytes (%) (Auto) 6.1 L 10.0-50.0 % Monocytes (%) (Auto) 9.0 0.0-12.0 % Eosinophils (%) (Auto) 0.0 0.0-7.0 % Basophils (%) (Auto) 0.3 0.0-2.0 % Neutrophils # (Auto) 8.1 1.6-8.6 10 ^3/uL Lymphocytes # (Auto) 0.6 0.4-5.4 10 ^3/uL Monocytes # (Auto) 0.9 0-1.3 10 ^3/uL Eosinophils # (Auto) 0 0-0.8 10 ^3/uL Basophils # (Auto) 0 0-0.2 10 ^3/uL Nucleated Red Blood Cells 0.0 % Prothrombin Time 12.5 H 9.3-11.8 sec Prothrombin Time INR 1.20 H 0.9-1.15 Activated Partial Thromboplast Time 24.2 L 24.5-34.5 SEC Sodium Level 139 136-145 mmol/L Potassium Level 2.7 L 3.5-5.1 mmol/L Chloride Level 101 98-107 mmol/L Carbon Dioxide Level 28 20-31 mmol/L Anion Gap 10 5-15 Blood Urea Nitrogen 31 H 9-23 mg/dL Creatinine 1.44 H 0.550-1.02 mg/dL Glomerular Filtration Rate Calc 41 >90 mL/min BUN/Creatinine Ratio 21.5 H 10.0-20.0 Serum Glucose 183 H 74-106 mg/dL Serum Osmolality 307 H 278-298 mOsm/kg Calcium Level 9.9 8.7-10.4 mg/dL Total Bilirubin 0.4 0.2-1.0 mg/dL Aspartate Amino Transferase (AST) 14 13-40 U/L Alanine Aminotransferase (ALT) < 9 7-40 U/L Alkaline Phosphatase 93 46-116 U/L Total Protein 5.8 5.7-8.2 g/dL Albumin 3.3 3.2-4.8 g/dL Urine Color Colorless Yellow Urine Clarity Turbid H Clear Urine pH 5.5 5.0-9.0 Urine Specific [place] 1.020 1.001-1.035 Urine Protein 1+ H Negative Urine Ketones 1+ H Negative Urine Blood Trace H Negative /uL Urine Nitrite Negative Negative Urine Bilirubin Negative Negative Urine Urobilinogen Normal Negative mg/dL Urine Leukocyte Esterase 3+ Negative /uL Urine RBC 10 0 - 4 /hpf Urine WBC Clumps Present None Seen /hpf Urine Microscopic WBC 193 H 0-5 /HPF Urine Squamous Epithelial Cells Mod <5 /hpf Urine Bacteria Many H None Seen /hpf Urine Mucus Few None Seen Urine Yeast (Budding) Few None Seen /hpf Urine Glucose 4+ H Normal mg/dL Urine Opiates Screen Neg NEGATIVE Urine Fentanyl Screen Neg NEGATIVE Urine Barbiturates Screen Neg NEGATIVE Urine Phencyclidine Screen Neg NEGATIVE Urine Amphetamines Screen Neg NEGATIVE Urine Benzodiazepines Screen Neg NEGATIVE Urine Cocaine Screen Neg NEGATIVE Urine Cannabinoids Screen Neg NEGATIVE Test 08/06/24 20:49 08/06/24 15:45 Range/Units Troponin I High Sensitivity 34 </=34 ng/L Thyroid Stimulating Hormone (TSH) 2.51 0.55-4.78 uIU/mL Hemoglobin A1c 9.7 H <5.7 % A1C B-Type Natriuretic Peptide 693.15 0-100 pg/mL Assessment Right lower lobe pulmonary emboli Acute on chronic decompensated HFpEF Coronary artery disease status post two-vessel CABG with post-op mediastinitis (05/2024) [id number] diabetes mellitus with uncontrolled blood sugars, HgbA1C 9.7% Severe hypokalemia NSTEMI type 2 secondary to above Likely CKD stage IIIb Anemia in chronic disease Plan/Recommendation (Dr. Galeas) We will continue further cardiac evaluation with a transthoracic echocardiogram to evaluate cardiac function. In the meantime, continue heparin drip per pharmacy protocol given PE. Transition to DOAC therapy when appropriate. Initiate preload and afterload reduction. Strict I&Os, daily weight, & fluid restriction. Continue tight glycemic control. Replete electrolytes as n ecessary. ABX therapy per primary care team. Thank you for allowing us to participate in this patient's care. Please call if you have any questions or concerns. Critical care time: 30 min. This medical document was created using an [employer] medical record system with voice recognition software and computerized dictation system. Although this document has been carefully reviewed, there might still be some phonetic and typographical errors. Occasional wrong-word or ``sound-alike substitutions may have occurred due to the inherent limitations of voice recognition software. These areas are purely typographical due to imperfections of the software programs and do not reflect any compromise in the patient's medical care. Please read the chart carefully and recognize, using context, where these substitutions have occurred. Plan discussed with: Patient, Other NYHA Physical activity limitations: Class3(Marked) ordinary (activity causes symtoms) Date of Service: Aug 07, 2024 Billing Provider: CAROLYN LNUA Cardiology Common Codes: 68097-[id number] CARE 30-74 MIN ADALGISA WILLIS DO 08/07/24 1944: Date Seen: Aug 07, 2024 Allergies: Coded Allergies: NO KNOWN ALLERGIES (Unverified , 08/06/24) Plan/Recommendation The patient was seen and discussed with Carolyn Luna NP. I agree with her Assessment and Plan, which was formulated with me. Plan discussed with: Patient Date of Service: Aug 07, 2024 Billing Provider: ADALGISA WILLIS DO Cardiology Common Codes: [id number] INP/OBS CARE (High) CAROLYN LUNA Aug 07, 2024 13:27 ADALGISA WILLIS DO Aug 07, 2024 19:44
[2024-08-07] MEDS: MEROPENEM 1GM IVPB 50 ML IV SCH (14:45)
--- NOTE | 2024-08-07 15:55 | DVHSR ---
APPROVED REPORT EXAM: Two-dimensional and M-mode echocardiogram with Doppler and color Doppler. Blood Pressure: 125/41 mmHg INDICATION heart failure Surgery/Intervention CABG: Date: 05/2024 RISK FACTORS Height: 5'0, Weight: 123 DIMENSIONS LVDd3.5 (3.8-5.7cm)LA (2D)3.9 (1.9-4.0cm)Aortic Root2.6 (2.0-3.7cm) LVDs2.5 (2.5-4.0cm)LA (MM) (1.9-4.0cm)Aortic Cusp Exc1.1 (1.5-2.0cm) EF (%) 55.0 (55-70%)Rt. Atrium3.5 (1.9-4.0cm)Asc. Aorta cm IVSd0.9 (0.7-1.1cm)RV (D)3.5 (1.8-2.4cm) PWd0.9 (0.7-1.1cm) Mitral Valve MitralMitral Stenosis E wave0.92m/sMV Mean GR.mmHg A wave0.89m/sMV Peak GR.mmHg E/A ratio1.02D MVAcm2 DECEL [id number] 1/2 Timems Aortic Valve Aortic ValveAortic Stenosis V10.65m/Homar Mean GR.3mmHg V21.08m/Homar Peak GR.5mmHg LVOT Diameter1.9 (1.8-2.4cm)Doppler AVA1.71cm2 Pulmonic Valve V20.89m/s Tricuspid Valve TR Velocity2.25m/s [id number] Other Information Quality : Technically LimitedRhythm : Technically limited study due to CABG.body habitus.patient position. Conclusion Normal LV size with mildly reduced systolic function. LVEF 45-50%. Severe hypokinesis of anteroseptal and anterior chilel, as well as apex. Grade 2 diastolic dysfunction. Normal RV size and systolic function. Mild LA enlargement. No significant valvular disease. Mild aortic sclerosis. Trace TR and PI. RVSP estimated at 20 mmHg + CVP. IVC not well seen. No pericardial effusion.
[2024-08-07 17:00] LABS: INR 1.24 (0.9-1.15); Prothrombin Time 12.9 sec (9.3-11.8)
[2024-08-07 17:03] LABS: Magnesium 2.1 mg/dL (1.6-2.6); Partial Thromboplastin Time 108.3 SEC (24.5-34.5)
[2024-08-07] MEDS: Glucerna Carbsteady SHAKE Vanilla 8oz PO SCH (19:26)
[2024-08-07] MEDS ORDERED: METOPROLOL TARTRATE 25 MG TAB PO SCH (22:00)
[2024-08-07] MEDS: SODIUM CHLORIDE 0.9% 250 ML IV SCH (23:06)
[2024-08-08 00:53] LABS: INR 1.15 (0.9-1.15); Partial Thromboplastin Time 54.2 SEC (24.5-34.5)
[2024-08-08] MEDS: VANCOMYCIN 1GM/250ML KIT 250 ML IV SCH (04:19)
[2024-08-08 05:16] LABS: Basophils # (auto) 0 10 ^3/uL (0-0.2); Basophils % (auto) 0.2 % (0.0-2.0); Eosinophils # (auto) 0.1 10 ^3/uL (0-0.8); Eosinophils % (auto) 0.4 % (0.0-7.0); Hematocrit 30.7 % (36.0-46.0); Hemoglobin 10.2 g/dL (12.2-16.2); Lymphocytes # (auto) 0.9 10 ^3/uL (0.4-5.4); Lymphocytes % (auto) 6.8 % (10.0-50.0); Mean Corpuscular Hemoglobin 29.8 pg (28.0-32.0); Mean Corpuscular Hgb Conc. 33.3 g/dL (32.0-36.0); Mean Corpuscular Volume 89.6 fL (80.0-100.0); Monocytes # (auto) 1.1 10 ^3/uL (0-1.3); Neutrophils # (auto) 11.6 10 ^3/uL (1.6-8.6); Neutrophils % (auto) 84.6 % (37.0-80.0); Platelet Count (auto) 378 10^3/uL (140-450); Red Blood Cells 3.42 10^6/uL (4.0-5.20); Red Cell Distribution Width 15.9 % (11.8-14.3); White Blood Cell 13.7 10^3/uL (4.4-10.8)
[2024-08-08] MEDS: NOREPINEPHRINE 8 MG/250ML KIT 250 ML IV SCH (05:30)
[2024-08-08 05:38] LABS: Anion Gap 6 (5-15); Carbon Dioxide 30 mmol/L (20-31); Chloride 104 mmol/L (98-107); Sodium 140 mmol/L (136-145)
[2024-08-08 05:39] LABS: INR 1.11 (0.9-1.15); Partial Thromboplastin Time 56.5 SEC (24.5-34.5); Prothrombin Time 11.6 sec (9.3-11.8)
[2024-08-08 05:44] LABS: BUN/Creatinine Ratio 26.4 (10.0-20.0)
[2024-08-08 05:47] LABS: Potassium 3.5 mmol/L (3.5-5.1)
[2024-08-08 05:48] LABS: Blood Urea Nitrogen 34 mg/dL (9-23); Glucose 112 mg/dL (74-106)
[2024-08-08] MEDS: ACETAMINOPHEN 325 MG TAB PO PRN (06:56)
[2024-08-08 07:30] VITALS: PULSE 79; RESP 17; O2SAT 92
--- NOTE | 2024-08-08 10:36 | ECG ---
[facility] Test Date: 2024-08-07 Test Time: 06:17:25 Pat Name: JOSHUA ROSALES Department: ED Room: [address] [place] [address] A Gender: F Kiln Packer: DARIO : 1960 Requested By: YINKA AVITIA Order Number: [id number] Reading MD: Selvin Dean Measurements Intervals [place] Rate: 83 P: 69 DE: 148 QRS: 77 QRSD: 76 T: 261 QT: 476 QTc: 560 Interpretive Statements Sinus rhythm Left atrial enlargement Anteroseptal infarct, old Nonspecific repol abnormality, diffuse leads Prolonged QT interval Electronically Signed On 08-08-2024 22:37:36 PDT by Selvin Dean Please click the below link to view image of tracing.
[2024-08-08 10:40] LABS: INR 1.15 (0.9-1.15); Partial Thromboplastin Time 60.1 SEC (24.5-34.5)
[2024-08-08] MEDS: FLUCONAZOLE 200MG/100ML 100 ML IV ONE (15:04)
--- NOTE | 2024-08-08 15:08 | DVHPN2 ---
Consult Progress Note Date Seen: Aug 08, 2024 Subjective Review of Systems: CVS:Normal, RESPIRATORY:Normal, NEURO:Normal Other Systems: Denies any cardiac symptoms Objective vital signs Vital Sign Date Time Temp Pulse Resp B/P (MAP) Pulse Ox O2 Delivery O2 Flow Rate FiO2 08/08/24 14:30 132/45 08/08/24 13:15 103 11 95 08/08/24 10:00 98.2 98.2 08/08/24 07:30 Room Air* 0 21 Total Intake and Output 08/07/24 08/07/24 08/08/24 15:00 23:00 07:00 Intake Total 400 ml 71 ml 551 ml Output Total 550 ml Balance 400 ml 71 ml 1 ml medications Current Medications Medications Dose Ordered Sig/Lynn Route Start Time Stop Time Status Last Admin Dose Admin Acetaminophen 650 mg Q6HP PRN PO 08/07/24 03:30 08/08/24 06:56 650 MG Ondansetron HCl 4 mg Q6HPRN PRN IV 08/07/24 03:30 Vancomycin HCl 0 ml @ 0 mls/hr UD IV 08/07/24 03:30 Diagnostic Test (Pha) 1 strip Q6HR 08/07/24 06:00 08/08/24 12:40 1 STRIP Insulin Human Regular Q6HR SC 08/07/24 06:00 08/08/24 12:42 2 UNITS Dextrose 50 ml UD PRN IV 08/07/24 05:45 Vancomycin HCl 250 ml @ 250 mls/hr DAILY@0400 IV 08/08/24 04:00 08/08/24 04:19 250 MLS/HR Meropenem 50 ml @ 17 mls/hr Q12HR IV 08/07/24 14:00 08/08/24 10:06 17 MLS/HR Enteral Nutritional Formula 240 ml TIDWM PO 08/07/24 18:00 08/08/24 12:48 240 ML Heparin Sodium/ Dextrose 250 ml @ 7 mls/hr Q24H IV 08/07/24 18:30 08/07/24 18:30 7 MLS/HR Norepinephrine Bitartrate 250 ml @ 0.938 mls/ hr Q24H IV 08/08/24 05:30 08/08/24 05:30 2.813 MLS/HR Fluconazole 100 ml @ 100 mls/hr DAILY IV 08/09/24 10:00 Examination: GENERAL:Abnormal (Lethargic), LUNGS:Normal, CVS:Abnormal (1+ pitting edema), NEURO:Normal laboratory and microbiology Laboratory Tests 08/08/24 04:31 Test 08/08/24 04:31 Range/Units Serum Glucose 112 H 74-106 mg/dL Problem List/Assessment/Plan Problem List/Assessment/Plan Sepsis with recent post-op mediastinitis (06/2024) Right lower lobe pulmonary emboli Acute on chronic decompensated HFmrEF Coronary artery disease status post two-vessel CABG (05/2024) Olu-[id number] diabetes mellitus with uncontrolled hyperglycemia, HgbA1C 9.7% Severe hypokalemia, resolved NSTEMI type 2 secondary to above Likely CKD stage IIIb Anemia in chronic disease Plan/Recommendation (Dr. Dean) Transthoracic echocardiogram revealed an EF of 45-50% with severe hypokinesis of the anteroseptal and anterior chilel as well as apex. Grade II diastolic dysfunction. Continue heparin drip per pharmacy protocol given PE. Transition to DOAC therapy when appropriate. Strict I&Os, daily weight, & fluid restriction. Continue tight glycemic control. Replete electrolytes as necessary. ABX therapy per primary care team. Agree with transfer to [facility]. Kindly call if in need to continue following up. Thank you for allowing us to participate in this patient's care. Critical care time: 30 min. This medical document was created using an electronic medical record system with voice recognition software and computerized dictation system. Although this document has been carefully reviewed, there might still be some phonetic and typographical errors. Occasional wrong-word or ``sound-alike substitutions may have occurred due to the inherent limitations of voice recognition software. These areas are purely typographical due to imperfections of the software programs and do not reflect any compromise in the patient's medical care. Please read the chart carefully and recognize, using context, where these substitutions have occurred. Plan discussed with: Patient, Other Dietary Evaluation Review Recommendations by RD: Protein Supplementation, PPN/TPN Comments: Pt is at high risk of malnutrition d/t inadeqaute nutrient intake for couple days prior admission and increased needs for wound healing. 1) Consider PN/TPN supplementation 2) Nirmal 1 pk daily, MVI w/ minerals 1 tab daily, VitC 500mg BID, Zinc sulfate 220mg daily x 10 days 3) Advance diet as medically feasible 4) Continue current plan of care Expected Outcomes/Goals: Pt will meet >75% estimated needs Fu 2-3 days Date of Service: Aug 08, 2024 Billing Provider: DARLING LUNA Cardiology Common Codes: 58833-[id number] CARE 30-74 MIN DARLING LUNA Aug 08, 2024 15:08
--- NOTE | 2024-08-08 17:26 | DVHDSRES ---
Discharge Summary Date of Admission Resident Creating Document: REGINA MCKEON RESIDENT Aug 06, 2024 at 21:28 Date of Discharge: Aug 08, 2024 Admitting Diagnosis Septic shock pulmonary embolism Labs/Diagnostic Data: Laboratory Results Test 08/08/24 12:38 08/08/24 10:20 08/08/24 07:40 08/08/24 04:31 POC Glucose 151 mg/dl (70-106) Prothrombin Time 12.0 sec (9.3-11.8) Prothrombin Time INR 1.15 (0.9-1.15) Activated Partial Thromboplast Time 60.1 SEC (24.5-34.5) Lactic Acid Level 1.4 mmol/L (0.4-2.0) White Blood Count 13.7 10^3/uL (4.4-10.8) Red Blood Count 3.42 10^6/uL (4.0-5.20) Hemoglobin 10.2 g/dL (12.2-16.2) Hematocrit 30.7 % (36.0-46.0) Mean Corpuscular Volume 89.6 fL (80.0-100.0) Mean Corpuscular Hemoglobin 29.8 pg (28.0-32.0) Mean Corpuscular Hemoglobin Concent 33.3 g/dL (32.0-36.0) Red Cell Distribution Width 15.9 % (11.8-14.3) Platelet Count 378 10^3/uL (140-450) Mean Platelet Volume 9.3 fL (6.9-10.8) Neutrophils (%) (Auto) 84.6 % (37.0-80.0) Lymphocytes (%) (Auto) 6.8 % (10.0-50.0) Monocytes (%) (Auto) 8.0 % (0.0-12.0) Eosinophils (%) (Auto) 0.4 % (0.0-7.0) Basophils (%) (Auto) 0.2 % (0.0-2.0) Neutrophils # (Auto) 11.6 10 ^3/uL (1.6-8.6) Lymphocytes # (Auto) 0.9 10 ^3/uL (0.4-5.4) Monocytes # (Auto) 1.1 10 ^3/uL (0-1.3) Eosinophils # (Auto) 0.1 10 ^3/uL (0-0.8) Basophils # (Auto) 0 10 ^3/uL (0-0.2) Nucleated Red Blood Cells 0.0 % Sodium Level 140 mmol/L (136-145) Potassium Level 3.5 mmol/L (3.5-5.1) Chloride Level 104 mmol/L (98-107) Carbon Dioxide Level 30 mmol/L (20-31) Anion Gap 6 (5-15) Blood Urea Nitrogen 34 mg/dL (9-23) Creatinine 1.29 mg/dL (0.550-1.02) Glomerular Filtration Rate Calc 46 mL/min (>90) BUN/Creatinine Ratio 26.4 (10.0-20.0) Serum Glucose 112 mg/dL (74-106) Calcium Level 10.0 mg/dL (8.7-10.4) Magnesium Level 2.0 mg/dL (1.6-2.6) Test 08/07/24 04:32 08/07/24 00:30 08/06/24 20:49 08/06/24 15:45 Serum Osmolality 307 mOsm/kg (278-298) Total Bilirubin 0.4 mg/dL (0.2-1.0) Aspartate Amino Transferase (AST) 14 U/L (13-40) Alanine Aminotransferase (ALT) < 9 U/L (7-40) Alkaline Phosphatase 93 U/L (46-116) Total Protein 5.8 g/dL (5.7-8.2) Albumin 3.3 g/dL (3.2-4.8) Urine Color Colorless (Yellow) Urine Clarity Turbid (Clear) Urine pH 5.5 (5.0-9.0) Urine Specific [place] 1.020 (1.001-1.035) Urine Protein 1+ (Negative) Urine Ketones 1+ (Negative) Urine Blood Trace /uL (Negative) Urine Nitrite Negative (Negative) Urine Bilirubin Negative (Negative) Urine Urobilinogen Normal mg/dL (Negative) Urine Leukocyte Esterase 3+ /uL (Negative) Urine RBC 10 /hpf (0 - 4) Urine WBC Clumps Present /hpf (None Seen) Urine Microscopic WBC 193 /HPF (0-5) Urine Squamous Epithelial Cells Mod /hpf (<5) Urine Bacteria Many /hpf (None Seen) Urine Mucus Few (None Seen) Urine Yeast (Budding) Few /hpf (None Seen) Urine Glucose 4+ mg/dL (Normal) Urine Opiates Screen Neg (NEGATIVE) Urine Fentanyl Screen Neg (NEGATIVE) Urine Barbiturates Screen Neg (NEGATIVE) Urine Phencyclidine Screen Neg (NEGATIVE) Urine Amphetamines Screen Neg (NEGATIVE) Urine Benzodiazepines Screen Neg (NEGATIVE) Urine Cocaine Screen Neg (NEGATIVE) Urine Cannabinoids Screen Neg (NEGATIVE) Troponin I High Sensitivity 34 ng/L (</=34) Thyroid Stimulating Hormone (TSH) 2.51 uIU/mL (0.55-4.78) Hemoglobin A1c 9.7 % A1C (<5.7) B-Type Natriuretic Peptide 693.15 pg/mL (0-100) Other Laboratory Tests 08/08/24 04:31 Brief Hx & Hospital Course: Patient is 63 years old female with past medical history of diabetes mellitus type 2, hypertension, hyperlipidemia,, recent CABG () complicated by possible mediastinitis now s/p washout ( 06/2024) with MATT drains , at [facility] with a complaint of nausea and vomiting. As per patient she has been having intractable nausea and vomiting started last and was unable to keep anything down. Patient also reported feeling tired and fatigued which brought her to the hospital. Patient denied any chest pain, shortness of breath, palpitation, acute abdominal pain or dysuria or fever. Lab workup revealed WBC 9.4, hemoglobin 11.1, platelet 369, sodium 137, potassium 3.5 then went down to 2.7, supplemented, anion gap 12, elevated BUN 33, elevated serum creatinine 1.47, serum glucose 511, HbA1c 9.7, lactic acid 3.6, serum 10.2, serum bilirubin 0.6, AST 11, ALT 9, trop I 37> 36> 34, BNP 693, TSH 2.51. UDS negative. Urinalysis positive for UTI with leukocyte esterase 3+, WBC 193, RBC 10, many, glucose 4+, ketones 1+. 1.2. CXR revealed small left pleural effusion, no infiltrate. CT chest Right lower lobe segmental pulmonary emboli. No CT evidence of right heart strain. 2. Postsurgical changes from median sternotomy. There is soft tissue density in the anterior mediastinum and within the anterior soft tissues of the chest adjacent to a surgical drain which may be postsurgical in nature. Phlegmon/inflammatory changes are not excluded. No fluid collection. 3. Left pleural effusion. Admission patient has also developed hypotension with a BP 68/41, tachycardic of the 108, tachypneicn respiration 2. Was started on Levophed along with antibiotic cefepime for septic shock. Echo 2D revealed- Normal LV size with mildly reduced systolic function. LVEF 45-50%. Severe hypokinesis of anteroseptal and anterior chilel, as well as apex. Grade 2 diastolic dysfunction. Mild LA enlargement. No significant valvular disease. Mild aortic sclerosis. Trace TR and PI. RVSP estimated at 20 mmHg + CVP. Doppler study of the lower extremity was negative for DVT. Patient was treated with IV antibiotic and Levophed for sepsis with hypotension. Patient's symptoms improved. Patient was also seen by formwork carpenter. Wound culture preliminary report possible stable was aureus. Urine culture preliminary report more than [id number] CFU per mL Gram-negative rods, yeast. Preliminary blood culture reports no growth so far in 24 hours. Patient was being treated with meropenem, vancomycin as per pharmacy protocol, fluconazole, and heparin for PE. Patient was also evaluated by wound care team. Patient is more awake and alert today. Patient is hemodynamically stable to be discharged to acute care facility. Patient's family agreed with the plan of care. Patient was hemodynamically stable on discharge. critical care time including dw family and transferring physicians was 81 mins Operations or Procedures [place] [address] Ph: [phone] DIAGNOSTIC IMAGING Diagnostic Imaging Report : [id number] Signed PATIENT: JOSHUA ROSALES ACCT: [id number] UNIT: [id number] : 1960 LOC: ER ROOM / BED: / AGE / SEX: 63 / F ADM STATUS: REG ER SERVICE 9601 ORDERING PHYSICIAN: ABDULAZIZ GOMES MD PROCEDURE(s): CXR2 - CHEST TWO VIEWS ROUTINE REASON: pain and weakness ORDER NUMBER(s): [id number], ACCESSION NUMBER(s): [id number] CHEST RADIOGRAPH Indication: pain and weakness Technique: Frontal and lateral view of the chest was obtained Comparison: None FINDINGS: Lines and Tubes: Atrial appendage closure device noted. Sternotomy wires. Lungs: Clear Pleura: Mild blunting left costophrenic angle compatible with a subtle pleural effusion. No pneumothorax. Cardiomediastinal contours: Unremarkable Bones: Unremarkable IMPRESSION: 1. Small left pleural effusion.No infiltrates ATED BY: YOVANI ECHEVARRIA MD DICTATED DATE/TIME: 08/06/241545 SIGNED BY: YOVANI ECHEVARRIA MD SIGNED DATE/TIME: 08/06/241545 CC: [place] [id number] Ph: [phone] DIAGNOSTIC IMAGING Diagnostic Imaging Report : [id number] Signed with Addenda PATIENT: JOSHUA ROSALES ACCT: [id number] UNIT: [id number] : 1960 LOC: OVERFLOW ROOM / BED: [address] [place] [address] / AGE / SEX: 63 / F ADM STATUS: ADM IN SERVICE 5 ORDERING PHYSICIAN: FRANCESCO CASTRO PROCEDURE(s): CXICT - CHEST WITH CONTRAST REASON: Rule out mediastinitis ORDER NUMBER(s): [id number], ACCESSION NUMBER(s): [id number] ADDENDUM ADDENDUM # 1 Critical findings were discussed with the patient's nurse at the time of interpretation by dr. Sesay on 08/07/2024. ORIGINAL REPORT Procedure: CT CHEST WITH CONTRAST Reason for study/Clinical History: Rule out mediastinitis Comparison Study: None available at time of dictation. Exam Date: 08/07/2024 04:01 AM Radiation Dose Information: CT Dose: CTDI volume is 7.32 mGy. Dose-length product is 499.07 mGy*cm Contrast: Type of contrast: Omnipaque 350 Contrast inject: 100 mL Contrast wasted:0 TECHNIQUE: CT of the chest was performed with intravenous contrast. Coronal and sagittal reformatted images are submitted. 3D/MIP images are provided. FINDINGS: Lower Neck: Visualized portions of the thyroid gland are unremarkable. Aorta and Vasculature: Normal caliber of thoracic aorta. No evidence of thoracic aortic aneurysm or dissection. There are filling defects in right lower lobe pulmonary artery segmental branches compatible with pulmonary emboli (series 2, image 76/117). Normal caliber main pulmonary artery. Lymph Nodes: No enlarged intrathoracic lymph nodes. Mediastinum: Heart size is normal. RV to LV ratio measures 0.8. There is no pericardial effusion. The esophagus is unremarkable. There soft tissue density in the anterior mediastinum. No fluid collection. Lungs: Right lower lobe opacities. Left lower lobe opacities. No suspicious pulmonary nodule. Central airways: Patent. Pleura: Left pleural effusion. No right pleural effusion. No pneumothorax Musculoskeletal: Status post median sternotomy. There is soft tissue density anterior to the median sternotomy. There is a surgical drain which terminates in the subcutaneous soft tissues of the upper mediastinum. No fluid collection. Upper abdomen: Limited portions of the upper abdomen are unremarkable. IMPRESSION: 1. Right lower lobe segmental pulmonary emboli. No CT evidence of right heart strain. 2. Postsurgical changes from median sternotomy. There is soft tissue density in the anterior mediastinum and within the anterior soft tissues of the chest adjacent to a surgical drain which may be postsurgical in nature. Phlegmon/inflammatory changes are not excluded. No fluid collection. 3. Left pleural effusion. All CT scans at this medical facility are performed using dose modulation techniques as appropriate to a performed exam including the following: Automated exposure control was utilized; adjustment of the MA and/or KV according to patient size; and use of iterative reconstruction technique. ATED BY: JACKELIN SESAY MD DICTATED DATE/TIME: 08/07/24606 SIGNED BY: JACKELIN SESAY MD SIGNED DATE/TIME: 08/07/24606 CC: Procedure: CT CHEST WITH CONTRAST Reason for study/Clinical History: Rule out mediastinitis Comparison Study: None available at time of dictation. Exam Date: 08/07/2024 04:01 AM Radiation Dose Information: CT Dose: CTDI volume is 7.32 mGy. Dose-length product is 499.07 mGy*cm Contrast: Type of contrast: Omnipaque 350 Contrast inject: 100 mL Contrast wasted:0 TECHNIQUE: CT of the chest was performed with intravenous contrast. Coronal and sagittal reformatted images are submitted. 3D/MIP images are provided. FINDINGS: Lower Neck: Visualized portions of the thyroid gland are unremarkable. Aorta and Vasculature: Normal caliber of thoracic aorta. No evidence of thoracic aortic aneurysm or dissection. There are filling defects in right lower lobe pulmonary artery segmental branches compatible with pulmonary emboli (series 2, image 76/117). Normal caliber main pulmonary artery. Lymph Nodes: No enlarged intrathoracic lymph nodes. Mediastinum: Heart size is normal. RV to LV ratio measures 0.8. There is no pericardial effusion. The esophagus is unremarkable. There soft tissue density in the anterior mediastinum. No fluid collection. Lungs: Right lower lobe opacities. Left lower lobe opacities. No suspicious pulmonary nodule. Central airways: Patent. Pleura: Left pleural effusion. No right pleural effusion. No pneumothorax Musculoskeletal: Status post median sternotomy. There is soft tissue density anterior to the median sternotomy. There is a surgical drain which terminates in the subcutaneous soft tissues of the upper mediastinum. No fluid collection. Upper abdomen: Limited portions of the upper abdomen are unremarkable. IMPRESSION: 1. Right lower lobe segmental pulmonary emboli. No CT evidence of right heart strain. 2. Postsurgical changes from median sternotomy. There is soft tissue density in the anterior mediastinum and within the anterior soft tissues of the chest adjacent to a surgical drain which may be postsurgical in nature. Phlegmon/inflammatory changes are not excluded. No fluid collection. 3. Left pleural effusion. All CT scans at this medical facility are performed using dose modulation techniques as appropriate to a performed exam including the following: Automated exposure control was utilized; adjustment of the MA and/or KV according to patient size; and use of iterative reconstruction technique. ATED BY: JACKELIN SESAY MD DICTATED DATE/TIME: 08/07/24542 SIGNED BY: JACKELIN SESAY MD SIGNED DATE/TIME: 08/07/24542 CC: [address] [address] Ph: [phone] DIAGNOSTIC IMAGING Diagnostic Imaging Report : [id number] Signed PATIENT: JOSHUA ROSALES ACCT: [id number] UNIT: [id number] : 1960 LOC: OVERFLOW ROOM / BED: [facility] / A AGE / SEX: 63 / F ADM STATUS: ADM IN SERVICE 0837 ORDERING PHYSICIAN: FRANCESCO CASTRO PROCEDURE(s): CXR1 - CHEST XRAY 1 VIEW REASON: CENTRAL LINE PLACEMENT VERIFICATION ORDER NUMBER(s): [id number], ACCESSION NUMBER(s): [id number] EXAM: XY CHEST XRAY 1 VIEW Indication: CENTRAL LINE PLACEMENT VERIFICATION Technique: Single frontal view of the chest was obtained Comparison: None FINDINGS: Lines and Tubes: Right central venous catheter tip projects over the right atrium. Lungs: Left basilar opacity. Pleura: Small left pleural effusion. No pneumothorax. Cardiomediastinal contours: Mild cardiomegaly. Bones: No acute osseous abnormality. IMPRESSION: Small left pleural effusion. ATED BY: TANNER MOYA MD DICTATED DATE/TIME: 08/07/24936 SIGNED BY: TANNER MOYA MD SIGNED DATE/TIME: 08/07/24936 CC: [place] [address] Ph: [phone] DIAGNOSTIC IMAGING Diagnostic Imaging Report : [id number] Signed PATIENT: JOSHUA ROSALES ACCT: [id number] UNIT: [id number] : 1960 [facility]GE / SEX: 63 / F ADM STATUS: ADM IN SERVICE 1048 ORDERING PHYSICIAN: DARLING LUNA HOOP MAKER PROCEDURE(s): BLDVT - BiLat Lower DVT REASON: EDEMA/PE ORDER NUMBER(s): [id number], ACCESSION NUMBER(s): [id number] Bilateral lower extremity venous duplex Clinical History: EDEMA/PE Comparison: None Technique: Duplex Doppler evaluation of the deep venous systems of both lower extremities from the common femoral veins to the popliteal veins including color Doppler and spectral/pulsed waveform analysis was performed. Findings: RIGHT SIDE: The common femoral vein demonstrates appropriate compressibility and waveform variability. There is compressibility/patency of the great saphenous vein at the proximal thigh. The femoral vein demonstrates appropriate compressibility and waveform variability. The deep femoral vein demonstrates appropriate compressibility and waveform variability. The popliteal vein demonstrates appropriate compressibility and waveform variability. There is normal compressibility at the tibioperoneal trunk. LEFT SIDE: The common femoral vein demonstrates appropriate compressibility and waveform variability. There is compressibility/patency of the great saphenous vein at the proximal thigh. The femoral vein demonstrates appropriate compressibility and waveform variability. The deep femoral vein demonstrates appropriate compressibility and waveform variability. The popliteal vein demonstrates appropriate compressibility and waveform variability. There is normal compressibility at the tibioperoneal trunk. Impression: No right or left femoropopliteal venous thrombosis. ATED BY: JOHNY MCGILL MD DICTATED DATE/TIME: 08/07/241237 SIGNED BY: JOHNY MCGILL MD SIGNED DATE/TIME: 08/07/241237 CC: [place] [address] Ph: [phone] DIAGNOSTIC IMAGING Diagnostic Imaging Report : [id number] Signed PATIENT: JOSHUA ROSALES ACCT: [id number] UNIT: [id number] : 1960 LOC: OVERFLOW ROOM / BED: [address] [place] [address] A AGE / SEX: 63 / F ADM STATUS: ADM IN SERVICE 27 ORDERING PHYSICIAN: YINKA AVITIA RESIDENT PROCEDURE(s): ECIDC - ECHO 2D MODE CARDIAC DOP REASON: heart failure ORDER NUMBER(s): [id number], ACCESSION NUMBER(s): [id number] APPROVED REPORT EXAM: Two-dimensional and M-mode echocardiogram with Doppler and color Doppler. Blood Pressure: 125/41 mmHg INDICATION heart failure Surgery/Intervention CABG: Date: 05/2024 RISK FACTORS Height: 5'0, Weight: 123 DIMENSIONS LVDd 3.5 (3.8-5.7cm) LA (2D) 3.9 (1.9-4.0cm) Aortic Root 2.6 (2.0- 3.7cm) LVDs 2.5 (2.5-4.0cm) LA (MM) (1.9-4.0cm) Aortic Cusp Exc 1.1 (1.5- 2.0cm) EF (%) 55.0 (55-70%) Rt. Atrium 3.5 (1.9-4.0cm) Asc. Aorta cm IVSd 0.9 (0.7-1.1cm) RV (D) 3.5 (1.8-2.4cm) PWd 0.9 (0.7-1.1cm) Mitral Valve Mitral Mitral Stenosis E wave 0.92m/s MV Mean GR. mmHg A wave 0.89m/s MV Peak GR. mmHg E/A ratio 1.0 2D MVA cm2 DECEL Time 206ms PRESS 1/2 Time ms Aortic Valve Aortic Valve Aortic Stenosis V1 0.65m/s AO Mean GR. 3mmHg V2 1.08m/s AO Peak GR. 5mmHg LVOT Diameter 1.9 (1.8-2.4cm) Doppler NICOLE 1.71cm2 Pulmonic Valve V2 0.89m/s Tricuspid Valve TR Velocity 2.25m/s RVSP 20mmHg Other Information Quality : Technically Limited Rhythm : Technically limited study due to CABG.body habitus.patient position. Conclusion Normal LV size with mildly reduced systolic function. LVEF 45-50%. Severe hypokinesis of anteroseptal and anterior chilel, as well as apex. Grade 2 diastolic dysfunction. Normal RV size and systolic function. Mild LA enlargement. No significant valvular disease. Mild aortic sclerosis. Trace TR and PI. RVSP estimated at 20 mmHg + CVP. IVC not well seen. No pericardial effusion. SIGNED BY: ADALGISA WILLIS DO SIGNED DATE/TIME: 08/07/24 1664 CC: Condition at Discharge: Stable Final Diagnosis/Problems List -Septic shock likely due to UTI Acute heart failure -HFmEF UTI with sepsis -Acute hypoxic respiratory failure due to acute systolic heart failure -Acute pulmonary embolism -Acute pulmonary edema -bilateral leg edema likely due to acute heart failure Suspected metabolic encephalopathy due to septic Shock -Coronary artery disease status post two-vessel CABG with post-op mediastinitis (05/2024), on MATT drain x2 NSTEMI type 2 secondary to above CAD Status post CABG History of hypertension Hyperlipidemia -intractable nausea and vomiting likely due to septic Shock -improved UTI with sepsis- PAVAN likely due to VMN -Likely CKD stage IIIb Hypokalemia-replenishe - Anemia of chronic disease -Diabetes mellitus type 2, controlled -elevated Lactic acidosis likely due to sepsis -Uncontrolled diabetes mellitus -Hypokalemia replenished -stage IV sacral ulcer Discharge Disposition: Acute Care Facility Discharge Instruct/Medications Diet: Consistent carbohydrate Activity: No Restrictions, As Tolerated Follow Up/Referral: fu with pcp/cardiac surgery Medications: per mar Care Plan: Total time spent on chart review, clinical assessment, discussing plan of care and discharge> 30 minutes Discharge Statement: "Patient was advised to return to the ER or call 911 if any headaches, dizziness, shortness of breath, chest pain, abdominal pain, bleeding, fevers, or worsening of medical condition. Patient was counseled about treatment plan, medications, possible side effects, patientverbalized understanding. All questions were answered to the best of my ability. This discharge took greater then 30 minutes in planning, reviewing documentation, counseling the patient, and discussing with other team members." ASSESSMENT ASSESSMENT Assessment sepsis Date of Service: Aug 08, 2024 Billing Provider: VENTURA BECK MD Common Visit Codes: 31720-[id number] CARE 30-74 MIN, 55495-[id number] CARE-EACH +30MIN REGINA MCKEON RESIDENT Aug 08, 2024 17:26 VENTURA BECK MD Aug 09, 2024 11:21
[2024-08-08 19:30] VITALS: PULSE 84; RESP 13; O2SAT 100
--- NOTE | 2024-08-08 23:38 | DVH ---
Exam: CT CT AB PEL WO CON-NO ORAL OR IV History: rule out perferation Comparison Study: None Technique: Multidetector spiral CT of the abdomen was performed from lung bases to pubic symphysis. Imaging was performed without IV contrast. Axial, coronal and sagittal multiplanar reformats were ob tained from the axial data set by the technologist. Radiation Dose : 1. Abdomen/Pelvis: CTDIvol 7.21 mGy, DLP 413.14 mGy*cm. Findings: Evaluation of solid organs is limited due to lack of intravenous contrast use. Lung Bases: Bibasilar consolidations, suspicious for pneumonia or aspiration. Small to moderate left effusion. Liver: The liver is normal in size. No focal lesions. Gallbladder and Biliary Tree: Unremarkable Spleen: Unremarkable Pancreas: The pancreas is grossly normal in appearance. Adrenal Glands: Unremarkable Kidneys: Kidneys are grossly normal without calculi or hydronephrosis. Bladder: Collapsed around a Freed catheter. Bowel: The stomach is grossly normal in appearance. Moderate to large colonic stool burden. No eviden ce of bowel obstruction. The appendix is not visualized; however, no secondary findings of acute jelena endicitis identified. Ascites: Absent Lymphadenopathy: No mesenteric, retroperitoneal or periportal lymphadenopathy. Abdominal Wall and Mesentery: Unremarkable. Vasculature: The visualized abdominal aorta is normal in size and caliber. Evaluation of abdominal a nd pelvic vessels is limited due to lack of intravenous contrast. Pelvic Organs: Unremarkable Musculoskeletal: Surgical fixation hardware seen in the left hip. IMPRESSION: 1. No free air or evidence of bowel perforation. 2. Bibasilar nodular densities suggestive of pneumonia or aspiration. 3. Small to moderate left-sided pleural effusion. 4. Moderate to large colonic stool burden. Radiation optimization: All CT scans at this facility use at least one of these dose optimization yaneth hniques: automated exposure control mA and/or kV adjustment per patient size (includes targeted exam s where dose is matched to clinical indication) or iterative reconstruction.
[2024-08-09 00:12] LABS: Rapid Influenza A Negative (Negative); Rapid Influenza B Negative (Negative)
[2024-08-09 00:13] LABS: COVID19 ANTIGEN SOFIA FIA NEGATIVE (NEGATIVE)
[2024-08-09 06:36] LABS: Basophils # (auto) 0 10 ^3/uL (0-0.2); Basophils % (auto) 0.4 % (0.0-2.0); Eosinophils # (auto) 0.1 10 ^3/uL (0-0.8); Eosinophils % (auto) 1.3 % (0.0-7.0); Hematocrit 31.9 % (36.0-46.0); Hemoglobin 10.5 g/dL (12.2-16.2); Lymphocytes % (auto) 9.1 % (10.0-50.0); Mean Corpuscular Hemoglobin 29.8 pg (28.0-32.0); Mean Corpuscular Hgb Conc. 32.9 g/dL (32.0-36.0); Mean Corpuscular Volume 90.7 fL (80.0-100.0); Monocytes # (auto) 0.5 10 ^3/uL (0-1.3); Monocytes % (auto) 4.9 % (0.0-12.0); Neutrophils # (auto) 9.4 10 ^3/uL (1.6-8.6); Neutrophils % (auto) 84.3 % (37.0-80.0); Platelet Count (auto) 337 10^3/uL (140-450); Red Blood Cells 3.52 10^6/uL (4.0-5.20); Red Cell Distribution Width 16.3 % (11.8-14.3); White Blood Cell 11.2 10^3/uL (4.4-10.8)
[2024-08-09 06:51] LABS: INR 1.14 (0.9-1.15); Partial Thromboplastin Time 42.2 SEC (24.5-34.5); Prothrombin Time 11.9 sec (9.3-11.8)
[2024-08-09] MEDS: HEPARIN DRIP/D5W 100UNITS/ML 250 ML IV SCH (07:02)
[2024-08-09 07:30] VITALS: PULSE 84; RESP 18; O2SAT 100
--- NOTE | 2024-08-09 07:47 | DVHPNRES ---
Progress Note Date Seen: Aug 09, 2024 Resident Creating Document: REGINA MCKEON RESIDENT Medical Necessity Reason Pt with a Central, PICC or Fol: Yes The following are medically ne: Central Line Subjective Review of Systems Patient is 63 years old female with past medical history of diabetes mellitus type 2, hypertension, hyperlipidemia,, recent CABG () complicated by possible mediastinitis now s/p washout ( 06/2024) with MATT drains , at [facility] with a complaint of nausea and vomiting. As per patient she has been having intractable nausea and vomiting started last and was unable to keep anything down. Patient also reported feeling tired and fatigued which brought her to the hospital. Patient denied any chest pain, shortness of breath, palpitation, acute abdominal pain or dysuria or fever. Lab workup revealed WBC 9.4, hemoglobin 11.1, platelet 369, sodium 137, potassium 3.5 then went down to 2.7, supplemented, anion gap 12, elevated BUN 33, elevated serum creatinine 1.47, serum glucose 511, HbA1c 9.7, lactic acid 3.6, serum 10.2, serum bilirubin 0.6, AST 11, ALT 9, trop I 37> 36> 34, BNP 693, TSH 2.51. UDS negative. Urinalysis positive for UTI with leukocyte esterase 3+, WBC 193, RBC 10, many, glucose 4+, ketones 1+. 1.2. CXR revealed small left pleural effusion, no infiltrate. CT chest Right lower lobe segmental pulmonary emboli. No CT evidence of right heart strain. 2. Postsurgical changes from median sternotomy. There is soft tissue density in the anterior mediastinum and within the anterior soft tissues of the chest adjacent to a surgical drain which may be postsurgical in nature. Phlegmon/inflammatory changes are not excluded. No fluid collection. 3. Left pleural effusion. Admission patient has also developed hypotension with a BP 68/41, tachycardic of the 108, tachypneicn respiration 2. Was started on Levophed along with antibiotic cefepime for septic shock. Echo 2D revealed- Normal LV size with mildly reduced systolic function. LVEF 45-50%. Severe hypokinesis of anteroseptal and anterior chilel, as well as apex. Grade 2 diastolic dysfunction. Mild LA enlargement. No significant valvular disease. Mild aortic sclerosis. Trace TR and PI. RVSP estimated at 20 mmHg + CVP. Doppler study of the lower extremity was negative for DVT. PMHX: Diabetes mellitus, hypertension, hyperlipidemia, Past surgical history: CABG Social history: Patient lives with a sister but currently living with a daughter in law here in [place] Family history: noncontributory Patient was seen today for clinical evaluation. Labs and chart reviewed. Patient reported feeling better today. Awake and alert and oriented x3 Denied acute chest pain no shortness a breath Patient was taken off Levophed last night Patient was transferred to [facility] later in the morning Overnight patient's BP ranging from 96-/155, 53-65, pulse 77-92, temperature 97.9-98.2, RR 13-18, room air, Negative Phalen's 520 Was taken off in the afternoon, WBC 9.4> 9.6> 13.7> 11.2 Hemoglobin 11.1> 10.2> 10.5 Platelet 369> 378> 337 Sodium> 137 >139> 140 Potassium 3.5> 2.7> 4.0> 3.5 Serum 1.47> 1.44> 1.29> 1.14. -urine culture revealed E coli ESBL-sensitive to meropenem -blood culture no growth -wound culture Staphylococcus aureus-sensitive to vancomycin Echo 2D revealed- Normal LV size with mildly reduced systolic function. LVEF 45- 50%. Severe hypokinesis of anteroseptal and anterior chilel, as well as apex. Grade 2 diastolic dysfunction. Mild LA enlargement. No significant valvular disease. Mild aortic sclerosis. Trace TR and PI. RVSP estimated at 20 mmHg + CVP Patient was seen by Cardiology, recommendation reviewed and appreciated Provider called and talk to daughter in-law Negra Jones [phone], discussed patient's current medical condition, plan of care and answered her question. Objective vital signs Vital Sign Date Time Temp Pulse Resp B/P (MAP) Pulse Ox O2 Delivery O2 Flow Rate FiO2 08/09/24 07:30 97.9 84 18 102/54 (70) 100 97.9 08/09/24 07:30 Nasal Cannula* 2 28 Total Intake and Output 08/08/24 08/08/24 08/09/24 15:00 23:00 07:00 Intake Total 67.750 ml 319.5 ml 340 ml Output Total 200 ml Balance 67.750 ml 119.5 ml 340 ml medications Current Medications Medications Dose Ordered Sig/Lynn Route Start Time Stop Time Status Last Admin Dose Admin Acetaminophen 650 mg Q6HP PRN PO 08/07/24 03:30 08/09/24 05:39 650 MG Ondansetron HCl 4 mg Q6HPRN PRN IV 08/07/24 03:30 Vancomycin HCl 0 ml @ 0 mls/hr UD IV 08/07/24 03:30 Diagnostic Test (Pha) 1 strip Q6HR 08/07/24 06:00 08/09/24 05:37 1 STRIP Insulin Human Regular Q6HR SC 08/07/24 06:00 08/09/24 00:00 9 UNITS Dextrose 50 ml UD PRN IV 08/07/24 05:45 Vancomycin HCl 250 ml @ 250 mls/hr DAILY@0400 IV 08/08/24 04:00 08/09/24 04:08 250 MLS/HR Meropenem 50 ml @ 17 mls/hr Q12HR IV 08/07/24 14:00 08/08/24 21:50 17 MLS/HR Enteral Nutritional Formula 240 ml TIDWM PO 08/07/24 18:00 08/08/24 19:43 240 ML Norepinephrine Bitartrate 250 ml @ 0.938 mls/ hr Q24H IV 08/08/24 05:30 08/08/24 05:30 2.813 MLS/HR Fluconazole 100 ml @ 100 mls/hr DAILY IV 08/09/24 10:00 Heparin Sodium/ Dextrose 250 ml @ 9 mls/hr Q24H IV 08/09/24 07:00 08/09/24 07:02 9 MLS/HR Examination General examination- , alert, tired looking HEENT- PEERLA, no acute nasal discharge Cardiovascular- S1-S2 audible, rate and rhythm regular, no murmur Respiratory- CTAB, no wheeze or rhonchi Gastrointestinal-nontender, bowel sound+. Nondistended Musculoskeletal-no acute joint swelling or tenderness or redness# Lower extremity- leg edema++, sacral wound stage IV Neurological- cranial nerves intact, no acute dysarthria or dysphagia Psychiatry- denies depression or SI or HI Skin- no acute rash or purpura laboratory and microbiology Laboratory Tests 08/09/24 06:10 08/08/24 04:31 Test 08/08/24 04:31 Range/Units Serum Glucose 112 H 74-106 mg/dL Microbiology Date/Time Source Procedure Growth Status 08/07/24 14:41 Sacrum Gram Stain - Final Resulted 08/07/24 14:41 Sacrum Wound Culture - Preliminary Resulted 08/07/24 05:34 Blood Blood Culture - Preliminary NO GROWTH AFTER 48 HOURS OF INCUBATION. Resulted 08/07/24 00:30 Voided Urine Urine Culture - Preliminary Resulted Problem List/Assessment/Plan Problem List/Assessment/Plan Assessment plan Neurological Suspected metabolic encephalopathy due to septic Shock -monitor vitals -avoid dehydration -monitor CBC, CMP, mental status Cardiovascular Acute heart failure -HFrEF Septic shock-status post Levophed -bilateral leg edema likely due to acute heart failure -Coronary artery disease status post two-vessel CABG with post-op mediastinitis (05/2024), on MATT drain x2 NSTEMI type 2 secondary to above CAD Status post CABG History of hypertension Hyperlipidemia -Echo 2D revealed- Normal LV size with mildly reduced systolic function. LVEF 45-50%. Severe hypokinesis of anteroseptal and anterior chilel, as well as apex -monitor vitals -continue wound care as per wound care team Respiratory -Acute hypoxic respiratory failure due to acute systolic heart failure -Acute pulmonary embolism -Acute pulmonary edema -IV heparin as per protocol Gastrointestinal -intractable nausea and vomiting likely due to septic Shock Slow bowel transit Genitourinary/renal UTI with sepsis-status post Levophed PAVAN likely due to VMN -Likely CKD stage IIIb Hypokalemia-replenishe - -urine culture revealed E coli ESBL -blood culture no growth -wound culture Staphylococcus aureus -continue antibiotic and and vancomycin Infectious -Septic shock likely due to UTI --urine culture revealed E coli ESBL -blood culture no growth -wound culture Staphylococcus aureus -continue meropenem and vancomycin as prescribed Hematology Anemia of chronic disease -monitor CBC Endocrine/metabolism -Diabetes mellitus type 2, controlled -elevated Lactic acidosis likely due to sepsis -Uncontrolled diabetes mellitus -Hypokalemia replenished -continue insulin sliding scale, monitor blood sugar level as recommended Skin/integumentary -stage IV sacral ulcer-continue care as per direction of the Wound Care team Lines-central line right internal jugular vein Goals of care/advance care planning Code status ; discussed with the patient >21 minutes PUD prophylaxis: Heparin DVT prophylaxis: Pantoprazole Plan discussed with Dr. Beck , nursing staff, daughter [id number], Patient Total time spent on patient evaluation, chart review, assessment and plan, total time spent in advance plan of care >41 minutes Plan discussed with: Patient (Daughter in law, RN ), Other My Orders My Orders Orders - REGINA MCKEON Procedure Category Date Status Time * Statistical Clerk CONS 08/08/24 Transmitted Consult Dietary Evaluation Review Recommendations by RD: Protein Supplementation, PPN/TPN Comments: Pt is at high risk of malnutrition d/t inadeqaute nutrient intake for couple days prior admission and increased needs for wound healing. 1) Consider PN/TPN supplementation 2) Nirmal 1 pk daily, MVI w/ minerals 1 tab daily, VitC 500mg BID, Zinc sulfate 220mg daily x 10 days 3) Advance diet as medically feasible 4) Continue current plan of care Expected Outcomes/Goals: Pt will meet >75% estimated needs Fu 2-3 days Date of Service: Aug 09, 2024 Billing Provider: VENTURA BECK MD Common Visit Codes: 58584-[id number] INP/OBS CARE(HIGH) Secondary Visit Codes: 55577-[id number] CARE PLAN 30 MINUTES REGINA MCKEON Aug 09, 2024 07:47 VENTURA BECK MD Aug 12, 2024 12:22
[2024-08-09] MEDS: FLUCONAZOLE 200MG/100ML 100 ML IV SCH (10:00)
[2024-08-09 10:09] VITALS: BP 161/65; PULSE 79; RESP 20; TEMP 97.8; O2SAT 79
== END 2024-08-09 10:16 | disposition short-term general hospital (02) | DRG 871 ==
LOC: ER 14:48 → OVERFLOW 21:28
PROVIDERS: ADMIT Internal Medicine; ATTEND Emergency Medicine
PROC: 02H633Z Insertion of Infusion Device into Right Atrium, Percutaneous Approach (ICD-10-PCS; principal; 2024-08-07)
DX: A41.9 Sepsis, unspecified organism (principal); G93.41 Metabolic encephalopathy; I21.A1 Myocardial infarction type 2; J96.01 Acute respiratory failure with hypoxia; L89.154 Pressure ulcer of sacral region, stage 4; R65.21 Severe sepsis with septic shock; J98.51 Mediastinitis; I26.99 Other pulmonary embolism without acute cor pulmonale; N17.0 Acute kidney failure with tubular necrosis; I50.21 Acute systolic (congestive) heart failure; N39.0 Urinary tract infection, site not specified; E44.0 Moderate protein-calorie malnutrition; I13.0 Hypertensive heart and chronic kidney disease with heart failure and stage 1 through stage 4 chronic kidney disease, or unspecified chronic kidney disease; J81.1 Chronic pulmonary edema; I25.10 Atherosclerotic heart disease of native coronary artery without angina pectoris; E78.5 Hyperlipidemia, unspecified; E11.65 Type 2 diabetes mellitus with hyperglycemia; E87.6 Hypokalemia; N18.32 Chronic kidney disease, stage 3b; D63.1 Anemia in chronic kidney disease; E11.22 Type 2 diabetes mellitus with diabetic chronic kidney disease; Z95.1 Presence of aortocoronary bypass graft; Z79.84 Long term (current) use of oral hypoglycemic drugs; Z83.3 Family history of diabetes mellitus; Z90.710 Acquired absence of both cervix and uterus; Z98.891 History of uterine scar from previous surgery; Z68.24 Body mass index [BMI] 24.0-24.9, adult; Z98.61 Coronary angioplasty status
CPT/HCPCS: 36415; 36556; 71045; 71046; 71260; 74176; 80048; 80053; 80307; 81001; 82565; 82962; 83036; 83605; 83735; 83880; 83930; 84132; 84443; 84484; 85025; 85610; 85730; 87040; 87077; 87086; 87186; 87205; 87426; 87804; 93005; 93306; 93970; 96372; G0378; J1450; J1815; J2185; J2405